=== PATIENT | female | born 1930 | race Caucasian/White ===

== ENCOUNTER → 2016-11-09 | Outpatient (REF) | payer MEDICARE, BC ==
[~2016-11-09] MED LIST: /OMEP10CA; /WARF25TA; CALCIUM 600/VIT D; COUMADIN; OXYB5TAB4; TIMO0.5S; VICO5TAB; ZEBE5TAB; aleve; lisinopril/hctz; tylenol arthritis
[2016-11-09 13:13] LABS: MEAN CORPUSCULAR HEMOGLOBIN 30.7 pg (27.0-33.0); MEAN CORPUSCULAR HGB CONC 33.3 g/dl (32.0-36.5); RED CELL DISTRIBUTION WIDTH 13.2 % (11.5-14.5); WHITE BLOOD COUNT 8.6 K/mm3 (4.0-10.0)
[2016-11-09 14:35] LABS: ALBUMIN 3.9 GM/DL (3.2-5.2); ALBUMIN/GLOBULIN RATIO 1.26 (1.00-1.93); ALKALINE PHOSPHATASE 98 U/L (45-117); ALT/SGPT 23 U/L (12-78); ANION GAP 10 MEQ/L (8-16); AST/SGOT 12 U/L (15-37); BLOOD UREA NITROGEN 12 MG/DL (7-18); CALCIUM LEVEL 9.2 MG/DL (8.8-10.2); CARBON DIOXIDE LEVEL 28 MEQ/L (21-32); CHLORIDE LEVEL 104 MEQ/L (98-107); CHOLESTEROL LEVEL 175 MG/DL (<200); GLOMERULAR FILTRATION RATE > 60.0 (>32); GLUCOSE, FASTING 103 MG/DL (83-110); POTASSIUM SERUM 4.2 MEQ/L (3.5-5.1); SODIUM LEVEL 142 MEQ/L (136-145); TRIGLYCERIDES LEVEL 155 MG/DL (<150)
== END ==
LOC: M SFHCPLAZ 10:39
PROVIDERS: ATTEND Family Medicine
DX: K21.9 Gastro-esophageal reflux disease without esophagitis (principal); F41.8 Other specified anxiety disorders; Z87.440 Personal history of urinary (tract) infections; E11.9 Type 2 diabetes mellitus without complications; E78.4 Other hyperlipidemia
CPT/HCPCS: 36415; 80053; 80061; 83036; 85027; G0463

== ENCOUNTER → 2017-02-19 | Outpatient (REF) | payer MEDICARE, BC | LOC: M LAB REF 17:51 | PROVIDERS: ATTEND Surgery | DX: L57.0 Actinic keratosis (principal) ==

== ENCOUNTER → 2017-11-05 | Outpatient (CLI) | payer MEDICARE, BC | LOC: M RAD 09:32 | DX: N63.10 Unspecified lump in the right breast, unspecified quadrant (principal); Z12.31 Encounter for screening mammogram for malignant neoplasm of breast | CPT/HCPCS: 77066 ==

== ENCOUNTER → 2017-11-07 | Outpatient (REF) | payer MEDICARE, BC | LOC: M LAB REF 18:44 | DX: C50.911 Malignant neoplasm of unspecified site of right female breast (principal) | CPT/HCPCS: 88305 ==

== ENCOUNTER 2017-11-19 07:08 | Inpatient (IN) | payer MEDICARE, BC ==
[2017-11-19 08:33] LABS: BEDSIDE GLUCOSE 218 MG/DL (83-110)
[2017-11-19 08:35] LABS: BASO % 0.5 % (0.0-1.0); EOS # 0.1 10^3/uL (0.0-0.50); EOS % 1.6 % (0.0-3.0); HEMATOCRIT 43.2 % (36.0-47.0); HEMOGLOBIN 14.7 g/dl (12.0-15.5); IMMATURE GRANULOCYTE % 1.1 % (0-3.0); LYMPH # 1.1 10^3/uL (1.5-4.5); LYMPH % 13.2 % (24.0-44.0); MEAN CORPUSCULAR HEMOGLOBIN 30.4 pg (27.0-33.0); MEAN CORPUSCULAR VOLUME 89.4 fl (80.0-96.0); MONO # 0.6 10^3/uL (0.0-0.8); MONO % 7.4 % (0.0-5.0); NEUTROPHILS # 6.2 10^3/uL (1.8-7.7); NEUTROPHILS % 76.2 % (36.0-66.0); PLATELET COUNT, AUTOMATED 168 10^3/uL (150-450); RED BLOOD COUNT 4.83 10^6/uL (4.00-5.40); RED CELL DISTRIBUTION WIDTH 13.2 % (11.5-14.5); WHITE BLOOD COUNT 8.1 10^3/uL (4.0-10.0)
[2017-11-19 08:36] LABS: ANION GAP 7 MEQ/L (8-16); BLOOD UREA NITROGEN 15 MG/DL (7-18); CALCIUM LEVEL 8.1 MG/DL (8.8-10.2); CARBON DIOXIDE LEVEL 26 MEQ/L (21-32); CHLORIDE LEVEL 108 MEQ/L (98-107); CPK CREATINE PHOSPHOKINASE 136 U/L (26-192); CREATININE FOR GFR 0.65 MG/DL (0.55-1.30); GLOMERULAR FILTRATION RATE > 60.0 (>32); GLUCOSE, FASTING 231 MG/DL (70-100); MAGNESIUM LEVEL 1.8 MG/DL (1.8-2.4); POTASSIUM SERUM 3.6 MEQ/L (3.5-5.1); SODIUM LEVEL 141 MEQ/L (136-145); TROPONIN I < 0.02 NG/ML (< 0.10)
[2017-11-19 08:42] LABS: CK-MB VALUE MASS 1.2 NG/ML (<3.6); MB/CK RELATIVE INDEX 0.88 (< OR =4); THYROID STIMULATING HORMONE 0.302 uIU/ML (0.358-3.740)
[2017-11-19 09:01] LABS: POS COUNT POS FLAG
[2017-11-19] MEDS: TETANUS/DIPHTHERIA TOX ADSORB ADULT 0.5ML SYR/VIAL (90714) IM (09:04)
[2017-11-19 10:13] LABS: FREE T4 1.21 NG/DL (0.76-1.46)
[2017-11-19 11:25] LABS: CK-MB VALUE MASS 1.8 NG/ML (<3.6); CPK CREATINE PHOSPHOKINASE 200 U/L (26-192); TROPONIN I < 0.02 NG/ML (< 0.10)
[2017-11-19] MEDS: ACETAMINOPHEN TAB 650MG DOSE (2X325MG) PO (12:08)
[2017-11-19] MEDS ORDERED: GLUCOSE 4 GM CHEW TABLET PO (13:45)
[2017-11-19] MEDS ORDERED: GLUCAGON FOR INJ 1 MG VIAL (J1610) SC (13:45)
[2017-11-19] MEDS ORDERED: DEXTROSE 50% 50 ML SYRINGE IV (13:45)
[2017-11-19] MEDS: HumaLOG INSULIN (NovoLOG) PER UNIT SC ×2 (17:30→20:17)
[2017-11-19 20:17] LABS: BEDSIDE GLUCOSE 186 MG/DL (83-110)
[2017-11-19] MEDS: NYSTATIN 100,000 UNITS/GM TOPICAL PWD 15 GM TOP (21:00)
[2017-11-20 06:35] LABS: HEMATOCRIT 42.7 % (36.0-47.0); HEMOGLOBIN 14.7 g/dl (12.0-15.5); MEAN CORPUSCULAR HEMOGLOBIN 30.6 pg (27.0-33.0); MEAN CORPUSCULAR HGB CONC 34.4 g/dl (32.0-36.5); PLATELET COUNT, AUTOMATED 239 10^3/uL (150-450); RED CELL DISTRIBUTION WIDTH 13.3 % (11.5-14.5); WHITE BLOOD COUNT 8.7 10^3/uL (4.0-10.0)
[2017-11-20 06:56] LABS: ALBUMIN 3.2 GM/DL (3.2-5.2); ALBUMIN/GLOBULIN RATIO 1.03 (1.00-1.93); ALKALINE PHOSPHATASE 79 U/L (45-117); ALT/SGPT 20 U/L (12-78); ANION GAP 6 MEQ/L (8-16); AST/SGOT 14 U/L (7-37); BILIRUBIN,TOTAL 1.3 MG/DL (0.2-1.0); BLOOD UREA NITROGEN 13 MG/DL (7-18); CALCIUM LEVEL 8.4 MG/DL (8.8-10.2); CARBON DIOXIDE LEVEL 27 MEQ/L (21-32); CHLORIDE LEVEL 107 MEQ/L (98-107); CREATININE FOR GFR 0.63 MG/DL (0.55-1.30); GLOMERULAR FILTRATION RATE > 60.0 (>32); GLUCOSE, FASTING 186 MG/DL (70-100); POTASSIUM SERUM 3.7 MEQ/L (3.5-5.1); SODIUM LEVEL 140 MEQ/L (136-145); TOTAL PROTEIN 6.3 GM/DL (6.4-8.2)
[2017-11-20 09:27] LABS: BEDSIDE GLUCOSE 253 MG/DL (83-110)
[2017-11-20] MEDS: HumaLOG INSULIN (NovoLOG) PER UNIT SC ×4 (09:45→20:35)
[2017-11-20 12:02] LABS: BEDSIDE GLUCOSE 137 MG/DL (83-110)
[2017-11-20] MEDS: NYSTATIN 100,000 UNITS/GM TOPICAL PWD 15 GM TOP ×2 (12:07→20:37)
[2017-11-20] MEDS: ACETAMINOPHEN TAB 650MG DOSE (2X325MG) PO (12:07)
[2017-11-20 16:42] LABS: ESTIMATED AVERAGE GLUCOSE 214 MG/DL (60-110); HEMOGLOBIN A1c 9.1 %
[2017-11-20 18:00] LABS: BEDSIDE GLUCOSE 221 MG/DL (83-110)
[2017-11-20 20:17] LABS: BEDSIDE GLUCOSE 228 MG/DL (83-110)
[2017-11-21 06:32] LABS: HEMOGLOBIN 15.4 g/dl (12.0-15.5); MEAN CORPUSCULAR HEMOGLOBIN 30.1 pg (27.0-33.0); MEAN CORPUSCULAR HGB CONC 33.5 g/dl (32.0-36.5); MEAN CORPUSCULAR VOLUME 89.8 fl (80.0-96.0); PLATELET COUNT, AUTOMATED 257 10^3/uL (150-450); RED BLOOD COUNT 5.12 10^6/uL (4.00-5.40); RED CELL DISTRIBUTION WIDTH 13.2 % (11.5-14.5); WHITE BLOOD COUNT 9.3 10^3/uL (4.0-10.0)
[2017-11-21 06:56] LABS: ALBUMIN 3.3 GM/DL (3.2-5.2); ALBUMIN/GLOBULIN RATIO 0.94 (1.00-1.93); ALKALINE PHOSPHATASE 88 U/L (45-117); ALT/SGPT 21 U/L (12-78); ANION GAP 8 MEQ/L (8-16); AST/SGOT 11 U/L (7-37); BLOOD UREA NITROGEN 16 MG/DL (7-18); CALCIUM LEVEL 8.9 MG/DL (8.8-10.2); CARBON DIOXIDE LEVEL 25 MEQ/L (21-32); CHLORIDE LEVEL 108 MEQ/L (98-107); CREATININE FOR GFR 0.73 MG/DL (0.55-1.30); GLOMERULAR FILTRATION RATE > 60.0 (>32); GLUCOSE, FASTING 205 MG/DL (70-100); SODIUM LEVEL 141 MEQ/L (136-145); TOTAL PROTEIN 6.8 GM/DL (6.4-8.2)
[2017-11-21] MEDS: NYSTATIN 100,000 UNITS/GM TOPICAL PWD 15 GM TOP ×2 (08:04→20:52)
[2017-11-21] MEDS: HumaLOG INSULIN (NovoLOG) PER UNIT SC ×4 (08:05→20:51)
[2017-11-21 11:38] LABS: BEDSIDE GLUCOSE 202 MG/DL (83-110)
[2017-11-21 16:50] LABS: BEDSIDE GLUCOSE 247 MG/DL (83-110)
[2017-11-21 20:52] LABS: BEDSIDE GLUCOSE 165 MG/DL (83-110)
[2017-11-22 06:11] LABS: HEMOGLOBIN 15.4 g/dl (12.0-15.5); MEAN CORPUSCULAR HEMOGLOBIN 29.8 pg (27.0-33.0); MEAN CORPUSCULAR HGB CONC 33.5 g/dl (32.0-36.5); PLATELET COUNT, AUTOMATED 271 10^3/uL (150-450); RED BLOOD COUNT 5.17 10^6/uL (4.00-5.40); RED CELL DISTRIBUTION WIDTH 13.4 % (11.5-14.5); WHITE BLOOD COUNT 9.7 10^3/uL (4.0-10.0)
[2017-11-22 06:30] LABS: ALBUMIN 3.3 GM/DL (3.2-5.2); ALBUMIN/GLOBULIN RATIO 0.94 (1.00-1.93); ALKALINE PHOSPHATASE 88 U/L (45-117); ALT/SGPT 23 U/L (12-78); ANION GAP 8 MEQ/L (8-16); AST/SGOT 14 U/L (7-37); BLOOD UREA NITROGEN 16 MG/DL (7-18); CALCIUM LEVEL 8.9 MG/DL (8.8-10.2); CARBON DIOXIDE LEVEL 27 MEQ/L (21-32); CHLORIDE LEVEL 106 MEQ/L (98-107); CREATININE FOR GFR 0.69 MG/DL (0.55-1.30); GLOMERULAR FILTRATION RATE > 60.0 (>32); GLUCOSE, FASTING 205 MG/DL (70-100); POTASSIUM SERUM 4.1 MEQ/L (3.5-5.1); SODIUM LEVEL 141 MEQ/L (136-145); TOTAL PROTEIN 6.8 GM/DL (6.4-8.2)
[2017-11-22] MEDS: HumaLOG INSULIN (NovoLOG) PER UNIT SC ×2 (07:44→12:32)
[2017-11-22] MEDS: NYSTATIN 100,000 UNITS/GM TOPICAL PWD 15 GM TOP (07:44)
[2017-11-22 12:09] LABS: BEDSIDE GLUCOSE 236 MG/DL (83-110)
== END 2017-11-22 13:45 | DRG 312 ==
LOC: M ED 07:08 → M ED INP 13:35 → M PCU 14:25
DX: R55 Syncope and collapse (principal); S02.2XXA Fracture of nasal bones, initial encounter for closed fracture; C50.911 Malignant neoplasm of unspecified site of right female breast; E11.9 Type 2 diabetes mellitus without complications; F13.90 Sedative, hypnotic, or anxiolytic use, unspecified, uncomplicated; Z88.0 Allergy status to penicillin; K21.9 Gastro-esophageal reflux disease without esophagitis; I10 Essential (primary) hypertension; E55.9 Vitamin D deficiency, unspecified; Z96.652 Presence of left artificial knee joint; E66.9 Obesity, unspecified; R29.6 Repeated falls

== ENCOUNTER → 2017-11-29 | Outpatient (REF) ==
[2017-11-29 09:48] LABS: HEMATOCRIT 44.8 % (36.0-47.0); HEMOGLOBIN 15.1 g/dl (12.0-15.5); MEAN CORPUSCULAR HEMOGLOBIN 30.3 pg (27.0-33.0); MEAN CORPUSCULAR HGB CONC 33.7 g/dl (32.0-36.5); PLATELET COUNT, AUTOMATED 237 10^3/uL (150-450); RED BLOOD COUNT 4.98 10^6/uL (4.00-5.40); RED CELL DISTRIBUTION WIDTH 13.2 % (11.5-14.5); WHITE BLOOD COUNT 8.1 10^3/uL (4.0-10.0)
[2017-11-29 10:05] LABS: ANION GAP 10 MEQ/L (8-16); BLOOD UREA NITROGEN 16 MG/DL (7-18); CALCIUM LEVEL 8.9 MG/DL (8.8-10.2); CARBON DIOXIDE LEVEL 28 MEQ/L (21-32); CHLORIDE LEVEL 103 MEQ/L (98-107); CREATININE FOR GFR 0.75 MG/DL (0.55-1.30); GLOMERULAR FILTRATION RATE > 60.0 (>32); GLUCOSE, FASTING 289 MG/DL (70-100); POTASSIUM SERUM 4.1 MEQ/L (3.5-5.1); SODIUM LEVEL 141 MEQ/L (136-145)
== END ==
DX: S02.2XXD Fracture of nasal bones, subsequent encounter for fracture with routine healing (principal)

== ENCOUNTER → 2018-02-14 | Outpatient (REF) | payer MEDICARE, BC ==
[2018-02-14 16:16] LABS: APPEARANCE, URINE HAZY (CLEAR); BACTERIA, URINE AUTO 1+ (NEGATIVE); BILIRUBIN, URINE AUTO NEGATIVE (NEGATIVE); BLOOD, URINE BLOOD 1+ (NEGATIVE); COLOR, URINE YELLOW (YELLOW); GLUCOSE, URINE (UA) AUTO 3+ mg/dL (NEGATIVE); KETONE, URINE AUTO NEGATIVE (NEGATIVE); LEUKOCYTE ESTERASE, URINE AUTO TRACE (NEGATIVE); NITRITE, URINE AUTO POSITIVE (NEGATIVE); PROTEIN, URINE AUTO NEGATIVE (NEGATIVE); RBC, URINE AUTO 2 /HPF (0-3); SPECIFIC GRAVITY URINE AUTO 1.028 (1.002-1.035); SQUAMOUS EPITHELIAL CELL UR AU 0 /HPF (0-6); UROBILINOGEN, URINE AUTO 0.2 mg/dL (0.0-2.0); WBC, URINE AUTO 24 /HPF (0-3)
== END ==
LOC: M SFHCPLAZ 15:45
DX: R35.0 Frequency of micturition (principal); N30.01 Acute cystitis with hematuria; Z23 Encounter for immunization
CPT/HCPCS: 81001

== ENCOUNTER → 2018-03-25 | Outpatient (REF) | payer MEDICARE, BC ==
[2018-03-25 13:33] LABS: HEMATOCRIT 48.6 % (36.0-47.0); MEAN CORPUSCULAR HEMOGLOBIN 29.5 pg (27.0-33.0); MEAN CORPUSCULAR HGB CONC 32.9 g/dl (32.0-36.5); MEAN CORPUSCULAR VOLUME 89.7 fl (80.0-96.0); PLATELET COUNT, AUTOMATED 265 10^3/uL (150-450); RED BLOOD COUNT 5.42 10^6/uL (4.00-5.40); RED CELL DISTRIBUTION WIDTH 13.5 % (11.5-14.5); WHITE BLOOD COUNT 10.1 10^3/uL (4.0-10.0)
[2018-03-25 14:06] LABS: ALBUMIN 3.8 GM/DL (3.2-5.2); ALBUMIN/GLOBULIN RATIO 1.15 (1.00-1.93); ALKALINE PHOSPHATASE 98 U/L (45-117); ALT/SGPT 26 U/L (12-78); ANION GAP 9 MEQ/L (8-16); AST/SGOT 13 U/L (7-37); BILIRUBIN,TOTAL 0.7 MG/DL (0.2-1.0); BLOOD UREA NITROGEN 16 MG/DL (7-18); CALCIUM LEVEL 9.4 MG/DL (8.8-10.2); CARBON DIOXIDE LEVEL 30 MEQ/L (21-32); CHLORIDE LEVEL 100 MEQ/L (98-107); CHOLESTEROL LEVEL 173 MG/DL (<200); CHOLESTEROL RISK RATIO 3.604 (<5); CREATININE FOR GFR 0.68 MG/DL (0.55-1.30); FREE T4 1.32 NG/DL (0.76-1.46); GLOMERULAR FILTRATION RATE > 60.0 (>32); GLUCOSE, FASTING 215 MG/DL (70-100); HDL CHOLESTEROL 48 MG/DL (>40); LDL CHOLESTEROL 98 MG/DL (<100); NON-HDL-C 125 MG/DL; POTASSIUM SERUM 4.6 MEQ/L (3.5-5.1); SODIUM LEVEL 139 MEQ/L (136-145); THYROID STIMULATING HORMONE 0.361 uIU/ML (0.358-3.740); TOTAL PROTEIN 7.1 GM/DL (6.4-8.2); TRIGLYCERIDES LEVEL 137 MG/DL (<150)
[2018-03-25 14:25] LABS: ESTIMATED AVERAGE GLUCOSE 212 MG/DL (60-110)
== END ==
DX: E11.9 Type 2 diabetes mellitus without complications (principal); I10 Essential (primary) hypertension; E78.49 Other hyperlipidemia
CPT/HCPCS: 84443

== ENCOUNTER → 2018-05-16 | Outpatient (CLI) | payer MEDICARE ==
[~2018-05-16] MED LIST changes: +APAP325T4 PO; +LETR2.5T2 PO; +METF500T4 PO; +NYST1POW9 TOP; +[UNRECOGNIZED DRUG - CODE] PO
--- NOTE | 2018-05-16 16:50 | REP ---
Digital diagnostic unilateral right breast mammography with CAD and focused right breast sonography: History: Known right breast malignancy for follow-up. The patient on neoadjuvant chemotherapy. Comparison mammography and sonography November 05, 2017. Mammographic findings: The known malignant right breast mass located superiorly and slightly medially has decreased significantly in size in the interval since the November 05, 2017 prior mammogram. Previous craniocaudal dimension was 6.7 cm. Current craniocaudal dimension is 3.7 cm. Previous anteroposterior dimension is 6.3 cm, current anteroposterior dimension is 4.6 cm. The previous medial to lateral dimension was 5.9 cm and current medial to lateral dimension is 3.3 cm. No new breast mass lesion is observed. No other finding. Focused right breast sonography findings: The right breast is rescanned at approximate 1 o'clock. The mass previously measured by ultrasound 5.5 x 4.8 x 5.4 cm. On today's sonography, these dimensions have decreased to 3.2 x 2.1 x 3.5 cm. Impression: BIRADS category 6 known right breast malignancy. Mammography and sonography today shows treatment response with shrinkage of the malignant mass in the right breast. No new mammographic abnormality. BI-RADS/ACR category 6 mammogram. Known biopsy-proven malignancy - appropriate action should be taken. Category reserved for lesions identified on imaging study with biopsy proof of malignancy prior to definitive therapy. This mammogram was interpreted with the aid of an FDA-approved computer-aided detection system. The patient states she had a clinical breast exam in the April 2018. The patient letter being requested is m#[id number]. Electronically Signed by Danilo Talley MD 05/16/2018 07:25 P
== END ==
LOC: M RAD 10:54
PROVIDERS: ATTEND Nurse Practitioner Family
DX: C50.911 Malignant neoplasm of unspecified site of right female breast (principal)

== ENCOUNTER → 2018-07-29 | Outpatient (REF) | payer MEDICARE ==
[~2018-07-29] MED LIST changes: +TRUL10IN SC
[2018-07-29 10:29] LABS: BLOOD UREA NITROGEN 12 MG/DL (7-18); CALCIUM LEVEL 8.9 MG/DL (8.8-10.2); CARBON DIOXIDE LEVEL 28 MEQ/L (21-32); CHLORIDE LEVEL 102 MEQ/L (98-107); CREATININE FOR GFR 0.62 MG/DL (0.55-1.30); GLOMERULAR FILTRATION RATE > 60.0 (>32); GLUCOSE, FASTING 147 MG/DL (70-100); HEMOGLOBIN A1c 7.5 %; SODIUM LEVEL 138 MEQ/L (136-145)
== END ==
PROVIDERS: ATTEND Physician Assistant
DX: E11.9 Type 2 diabetes mellitus without complications (principal)

== ENCOUNTER → 2018-09-12 | Outpatient (REF) | payer MEDICARE, BC ==
[~2018-09-12] MED LIST changes: -/WARF25TA; +COUM1TAB18; +MILKSUS9 PO; -[UNRECOGNIZED DRUG - CODE] PO
[2018-09-12 15:48] LABS: BASO # 0.1 10^3/uL (0.0-0.2); BASO % 0.7 % (0.0-1.0); EOS # 0.3 10^3/uL (0.0-0.50); HEMOGLOBIN 15.9 g/dl (12.0-15.5); LYMPH # 2.1 10^3/uL (1.5-4.5); LYMPH % 15.5 % (24.0-44.0); MEAN CORPUSCULAR HEMOGLOBIN 29.8 pg (27.0-33.0); MEAN CORPUSCULAR HGB CONC 33.1 g/dl (32.0-36.5); MEAN CORPUSCULAR VOLUME 89.9 fl (80.0-96.0); MONO % 7.1 % (0.0-5.0); NEUTROPHILS # 9.8 10^3/uL (1.8-7.7); NEUTROPHILS % 73.5 % (36.0-66.0); PLATELET COUNT, AUTOMATED 342 10^3/uL (150-450); RED BLOOD COUNT 5.34 10^6/uL (4.00-5.40); WHITE BLOOD COUNT 13.4 10^3/uL (4.0-10.0)
[2018-09-12 16:22] LABS: ALBUMIN 3.5 GM/DL (3.2-5.2); ALT/SGPT 31 U/L (12-78); BILIRUBIN,TOTAL 0.7 MG/DL (0.2-1.0); BLOOD UREA NITROGEN 13 MG/DL (7-18); CALCIUM LEVEL 9.3 MG/DL (8.8-10.2); CARBON DIOXIDE LEVEL 28 MEQ/L (21-32); CHLORIDE LEVEL 101 MEQ/L (98-107); CREATININE FOR GFR 0.79 MG/DL (0.55-1.30); GLOMERULAR FILTRATION RATE > 60.0 (>32); GLUCOSE, FASTING 128 MG/DL (70-100); POTASSIUM SERUM 3.7 MEQ/L (3.5-5.1); SODIUM LEVEL 137 MEQ/L (136-145); TOTAL PROTEIN 7.2 GM/DL (6.4-8.2)
== END ==
LOC: M SFHCPLAZ 14:22
PROVIDERS: ATTEND Family Medicine
DX: R19.7 Diarrhea, unspecified (principal)

== ENCOUNTER 2018-10-10 13:17 | Inpatient (IN) | payer MEDICARE ==
[~2018-10-10] VITALS: Ht 165.1 cm; Wt 85.0 kg
[2018-10-10] VITALS (9 sets, daily range): BP systolic 99–134; BP diastolic 55–84
[~2018-10-10 13:17] MED LIST changes: +MILKSUS3 PO; +ONDA4TAB6 PO
[2018-10-10] MEDS ORDERED: LETR2.5T2 PO (13:29)
[2018-10-10] MEDS: MORPHINE 2 MG/ML 1ML SYRINGE (J2270) IV PRN ×2 (13:38→13:49)
[2018-10-10 13:46] LABS: BASO # 0.1 10^3/uL (0.0-0.2); BASO % 0.4 % (0.0-1.0); EOS # 0.2 10^3/uL (0.0-0.50); EOS % 0.7 % (0.0-3.0); HEMATOCRIT 47.6 % (36.0-47.0); HEMOGLOBIN 15.9 g/dl (12.0-15.5); LYMPH # 2.8 10^3/uL (1.5-4.5); LYMPH % 12.3 % (24.0-44.0); MEAN CORPUSCULAR HEMOGLOBIN 30.3 pg (27.0-33.0); MEAN CORPUSCULAR HGB CONC 33.4 g/dl (32.0-36.5); MEAN CORPUSCULAR VOLUME 90.7 fl (80.0-96.0); MONO # 1.8 10^3/uL (0.0-0.8); MONO % 7.9 % (0.0-5.0); NEUTROPHILS # 17.7 10^3/uL (1.8-7.7); NEUTROPHILS % 77.3 % (36.0-66.0); PLATELET COUNT, AUTOMATED 320 10^3/uL (150-450); RED BLOOD COUNT 5.25 10^6/uL (4.00-5.40); WHITE BLOOD COUNT 22.9 10^3/uL (4.0-10.0)
[2018-10-10 13:56] LABS: INR 1.24; PROTHROMBIN TIME 15.8 SECONDS (12.1-14.4)
[2018-10-10 13:57] LABS: PARTIAL THROMBOPLASTIN TIME 28.9 SECONDS (25.4-37.6)
--- NOTE | 2018-10-10 14:02 | REP ---
Clinical: Right-sided chest pain. Technique: Portable upright view of the chest. Comparison: 11/19/2017 Findings: Bibasilar atelectasis suggested. Pulmonary nodules in the right lower lung zone cannot be excluded. No definite effusion. No pneumothorax. Mediastinum and cardiac silhouette are stable. Skeletal structures are intact. Impression: Findings suggest bibasilar atelectasis (left greater than right) as well as possible right lower lobe nodules. Electronically Signed by Stas Miller MD 10/10/2018 01:54 P
[2018-10-10] MEDS ORDERED: HYDROMORPHONE HCL 0.5 MG/ 0.5 ML SYRINGE (J1170 PER 1) IV ONE (14:15)
[2018-10-10 14:19] LABS: ALBUMIN 3.1 GM/DL (3.2-5.2); BILIRUBIN,DIRECT 0.6 MG/DL (0.0-0.2); BILIRUBIN,TOTAL 1.6 MG/DL (0.2-1.0); CALCIUM LEVEL 8.9 MG/DL (8.8-10.2); CREATININE FOR GFR 0.95 MG/DL (0.55-1.30); GLOMERULAR FILTRATION RATE 59.5 (>32); MB/CK RELATIVE INDEX 1.36 (< OR =4); POTASSIUM SERUM 3.5 MEQ/L (3.5-5.1); TOTAL PROTEIN 7.2 GM/DL (6.4-8.2); TROPONIN I 0.02 NG/ML (< 0.10)
[2018-10-10] MEDS ORDERED: ISOVUE-370 76% 100ML VIAL (Q9967) As Ordered ONE (15:53)
[2018-10-10] MEDS ORDERED: HYDROMORPHONE HCL 0.5 MG/ 0.5 ML SYRINGE (J1170 PER 1) IV PRN (16:00)
[2018-10-10] MEDS ORDERED: NS 2,400 ML in APPROPRIATE DILUENT 1 EA IV ONE (16:00)
--- NOTE | 2018-10-10 16:25 | REP ---
Clinical: Acute chest pain. Technique: Axial contrast enhanced images from the thoracic inlet to the upper abdomen using 100 ml Isovue 370 intravenous contrast material with coronal and sagittal re-formations. Findings: Extensive bilateral pulmonary emboli are appreciated extending from the right main pulmonary artery into the right upper lobe, middle lobe and lower lobe arteries with associated right lower lobe atelectasis as well as pulmonary emboli in the left main pulmonary artery extending into the lingula, left upper lobe and left lower lobe arteries with mild atelectasis. Further evaluation of the lung christopher demonstrates a 1.5 cm nodule in the right upper lobe (image 32) and smaller adjacent satellite nodules. No significant effusion. No pneumothorax. Mediastinal adenopathy is suggested although poorly evaluated. Thoracic aorta demonstrates atherosclerotic changes without aneurysm or dissection. Atherosclerotic changes to the coronary arteries are also identified without cardiomegaly or pericardial effusion. Heterogeneous enhancing right thyroid goiter measures greater than 6.8 cm maximal diameter with mass effect on the trachea and adjacent vascular structures in the thoracic inlet. The osseous structures demonstrate age-related osteopenia and degenerative changes. Impression: 1. Extensive bilateral pulmonary emboli originating in the right and left main pulmonary arteries with mild bibasilar atelectasis. 2. Pulmonary vascular congestion and poor inspiratory effort limits evaluation. 3. 1.5 cm nodular mass in the right upper lobe with small satellite lesions. 4. Large heterogeneous right thyroid goiter greater than 6.8 cm maximal diameter with mass effect on the trachea and vascular structures of the thoracic inlet. Electronically Signed by Stas Miller MD 10/10/2018 04:17 P
--- NOTE | 2018-10-10 16:30 | REP ---
Clinical: Right flank pain. Technique: Axial contrast enhanced images from the lung bases to the pubic symphysis with coronal and sagittal re-formations using 100 ml Isovue 370 intravenous contrast material. Findings: Lung bases demonstrate extensive lower lobe pulmonary emboli and mild bibasilar atelectasis. Fatty infiltration to the liver suggested without focal hepatic lesion. Spleen, atrophic pancreas, gallbladder, bilateral adrenal glands and kidneys are essentially normal for age. Age-related cortical atrophic change to the kidneys with small cyst are suggested although incompletely evaluated due to technique and motion artifact. There is no evidence for bowel obstruction or obvious acute inflammatory process. Extensive sigmoid diverticulosis noted without acute diverticulitis. 1 cm fat containing periumbilical hernia is identified. Pelvis demonstrates small diverticulum along the posterior aspect of the bladder with bladder gas suggesting prior catheterization. Uterus / adnexa are normal for age. No ascites. No free air. No adenopathy. Atherosclerotic changes of the aorta and vasculature noted without aneurysm or dissection. Musculoskeletal structures demonstrate degenerative changes without focal osseous abnormality. Impression: 1. Lung bases demonstrate pulmonary emboli and bibasilar atelectasis reported on patient's chest CT. 2. Age-related changes to the kidneys with suspected small cysts incompletely evaluated due to respiratory motion artifact. 3. Extensive sigmoid diverticulosis without acute diverticulitis or obvious acute enteric process. 4. 1 cm fat containing periumbilical hernia. 5. Possible small posterior bladder diverticulum. 6. No acute abdominopelvic pathology appreciated. Specifically, no ascites, focal inflammatory changes or adenopathy noted. Electronically Signed by Stas Miller MD 10/10/2018 04:21 P
[2018-10-10] MEDS ORDERED: METF10004 PO (16:43)
[2018-10-10] MEDS ORDERED: MOM30SS PO (16:43)
[2018-10-10] MEDS ORDERED: HEPARIN DRIP 25,000 UNITS in APPROPRIATE DILUENT 1 EA IV SCH ×3 (16:59→17:45)
[2018-10-10] MEDS ORDERED: HEPARIN SOD (PORCINE) 5000 UNITS/ML VIAL IV ONE (17:00)
[2018-10-10] MEDS ORDERED: NS 1,000 ML IV SCH (17:15)
[2018-10-10] MEDS ORDERED: MOM 30ML SUSPENSION UDC PO PRN (17:15)
[2018-10-10] MEDS ORDERED: DEXTROSE 50% 50 ML SYRINGE IV PRN (17:15)
[2018-10-10] MEDS ORDERED: ONDANSETRON 4 MG ORAL DISINTEGRATING TAB (Q0162 PER 1MG) PO PRN (17:15)
[2018-10-10] MEDS ORDERED: GLUCAGON FOR INJ 1 MG VIAL (J1610) SC PRN (17:15)
[2018-10-10] MEDS ORDERED: GLUCOSE 4 GM CHEW TABLET PO PRN (17:15)
[2018-10-10] MEDS ORDERED: HEPARIN SOD (PORCINE) 5000 UNITS/ML VIAL IV PRN (17:30)
--- NOTE | 2018-10-10 17:31 | HPEPDOC ---
[facility] Medical History & Physical Date of Admission October 10, 2018 Date of Service: October 10, 2018 History and Physical PCP: Teddy Avilez CHIEF COMPLAINT: Chest pain HISTORY OF PRESENT ILLNESS: Patient is an 87-year-old female who was out with family eating lunch when shortly thereafter she developed the sudden onset of excruciating right-sided chest pain. In association after eating a cheeseburger. She tells me that is worse with deep inspiration she is nervous. The pain like this before she does have some associated shortness of breath. The patient has received IV morphine in the emergency room with minimal relief. The patient does have some baseline dementia and as such her family who is bedside unable to assist with much of the history. Otherwise patient denies weight loss, hair loss , headache, visual changes, cough, nausea, vomiting, diarrhea, abdominal pain, muscle aches, worsening arthritis, change in mood PAST MEDICAL HISTORY: 1. Diastolic congestive heart failure. 2. Hypertension. 3. Type 2 diabetes 4. Breast cancer on palliative treatments only 5. Gastroesophageal reflux disease. 6. Dementia 7. Chronic constipation HOME MEDICATIONS: Please see below. ALLERGIES: Please see below PAST SURGICAL HISTORY: 1. Left total knee replacement. 2. Glaucoma surgery bilaterally. 3. Left foot bunion and hammertoe corrective surgery 4. Colonoscopy. SOCIAL HISTORY: Lives : [facility], Employment: Retired, Tobacco use: Denies. ETOH: Denies, Illicit drug use: Denies, Tattoos done unprofessionally: Denies, CODE STATUS: DNR/DNI patient's son who is currently tablet healthcare proxy her daughter and another center bedside FAMILY HISTORY:Reviewed and noncontributory REVIEW OF SYSTEMS: 10 systems reviewed and negative other than HPI PHYSICAL EXAMINATION: VITAL SIGNS: Temperature afebrile, pulse 88, respiratory rate 18, blood pressure 126/64, pulse oximetry 94% % on room air. GENERAL: [Pleasant elderly female writhing in her stretcher awake alert and answers questions appropriately appears to be in obvious discomfort HEENT: Moist mucous membranes no elevation and CVP CARDIOVASCULAR: S1 S2 regular no additional heart sounds appreciated. RESPIRATORY: Clear to auscultation bilaterally. ABDOMINAL: Bowel sounds present abdomen soft and nontender EXTREMITIES: No clubbing cyanosis or edema NEUROLOGICAL: Spontaneously moves all 4 extremities cranial 2 through 12 grossly intact no gross focal deficits appreciated PSYCHOLOGICAL: Appropriate LABORATORY DATA: See below. MICROBIOLOGY: Please see below. IMAGING: CT angiography of the chest:1. Extensive bilateral pulmonary emboli originating in the right and left main pulmonary arteries with mild bibasilar atelectasis. 2. Pulmonary vascular congestion and poor inspiratory effort limits evaluation. 3. 1.5 cm nodular mass in the right upper lobe with small satellite lesions. 4. Large heterogeneous right thyroid goiter greater than 6.8 cm maximal diameter with mass effect on the trachea and vascular structures of the thoracic inlet. CT abdomen and pelvis:1. Lung bases demonstrate pulmonary emboli and bibasilar atelectasis reported on patient's chest CT. 2. Age-related changes to the kidneys with suspected small cysts incompletely evaluated due to respiratory motion artifact. 3. Extensive sigmoid diverticulosis without acute diverticulitis or obvious acute enteric process. 4. 1 cm fat containing periumbilical hernia. 5. Possible small posterior bladder diverticulum. 6. No acute abdominopelvic pathology appreciated. Specifically, no ascites, focal inflammatory changes or adenopathy noted. ASSESSMENT & PLAN: This is a 87-year-old female with extensive bilateral pulmonary emboli. PROBLEMS: 1. Extensive bilateral pulmonary emboli: She is likely hypercoagulable secondary to her malignancy. I will check trend troponin as well as BNP and spoke with Dr. Welsh and Dr. Garcia we will plan for a stat echocardiogram to evaluate her right ventricular function should to be significant strain would consider for TPA the time being we will initiate IV heparin therapy. Continue with oxygen supplementation and pain control. This patient has been signed out to [facility] will continue following the patient. She is currently mildly hypoxic from her baseline we'll continue to monitor closely her prognosis is guarded 2.Breast cancer: Followed by emily Mackenzie in oncology patient elected for no further chemotherapy or aggressive treatments and site of her dementia. She is on letrozole as palliative therapy. 3. Diabetes: We'll provide her with sliding scale consistent carb 2 g sodium diet hypoglycemic protocol 4. Chronic constipation: Continue with her home bowel regimen DVT PROPHYLAXIS:Heparin drip DISPOSITION: Admitted to [facility] inpatient status. Prognosis is guarded Vital Signs Vital Signs Date Time Temp Pulse Resp B/P (MAP) Pulse Ox O2 Delivery O2 Flow Rate FiO2 10/10/18 15:16 88 18 94 Nasal Cannula 3.0 10/10/18 15:15 126/64 (84) Laboratory Data Labs 24H Laboratory Tests 2 10/10/18 12:33: Lactic Acid Level 3.7*H 10/10/18 13:34: Immature Granulocyte % (Auto) 1.4, White Blood Count 22.9H, Red Blood Count 5.25, Hemoglobin 15.9H, Hematocrit 47.6H, Mean Corpuscular Volume 90.7, Mean Corpuscular Hemoglobin 30.3, Mean Corpuscular Hemoglobin Concent 33.4, Red Cell Distribution Width 13.5, Platelet Count 320, Neutrophils (%) (Auto) 77.3H, Lymphocytes (%) (Auto) 12.3L, Monocytes (%) (Auto) 7.9H, Eosinophils (%) (Auto) 0.7, Basophils (%) (Auto) 0.4, Neutrophils # (Auto) 17.7H, Lymphocytes # (Auto) 2.8, Monocytes # (Auto) 1.8H, Eosinophils # (Auto) 0.2, Basophils # (Auto) 0.1, Nucleated Red Blood Cells % (auto) 0.0, Prothrombin Time 15.8H, Prothromb Time International Ratio 1.24, Activated Partial Thromboplast Time 28.9, Anion Gap 12, Glomerular Filtration Rate 59.5, Calcium Level 8.9, Aspartate Amino Transf (AST/SGOT) 31, Alanine Aminotransferase (ALT/SGPT) 45, Alkaline Phosphatase 121H, Total Bilirubin 1.6H, Direct Bilirubin 0.6H, Total Creatine Kinase 125, Creatine Kinase MB 2.0, Creatine Kinase MB Relative Index 1.36, Troponin I 0.02, Total Protein 7.2, Albumin 3.1L, Albumin/Globulin Ratio 0.76L, Amylase Level 21L, Lipase 177 10/10/18 14:47: Urine Color SHLOMO, Urine Appearance CLOUDYH, Urine pH 5.0, Urine Specific [place] 1.018, Urine Protein NEGATIVE, Urine Glucose (UA) 3+H, Urine Ketones TRACEH, Urine Blood 1+H, Urine Nitrite NEGATIVE, Urine Bilirubin NEGATIVE, Urine Urobilinogen 4.0H, Urine Leukocyte Esterase 2+H, Urine WBC (Auto) 2, Urine RBC (Auto) 1, Urine Hyaline Casts (Auto) 0, Urine Bacteria (Auto) 3+H, Urine Squamous Epithelial Cells 0, Urine Mucus (Auto) SMALL, Urine Sperm (Auto) CBC/BMP Laboratory Tests 10/10/18 13:34 Red Blood Count 5.25, Mean Corpuscular Volume 90.7, Mean Corpuscular Hemoglobin 30.3, Mean Corpuscular Hemoglobin Concent 33.4, Red Cell Distribution Width 13.5, Neutrophils (%) (Auto) 77.3 H, Lymphocytes (%) (Auto) 12.3 L, Monocytes (%) (Auto) 7.9 H, Eosinophils (%) (Auto) 0.7, Basophils (%) (Auto) 0.4, Neutrophils # (Auto) 17.7 H, Lymphocytes # (Auto) 2.8, Monocytes # (Auto) 1.8 H, Eosinophils # (Auto) 0.2, Basophils # (Auto) 0.1 Microbiology Microbiology 10/10/18 Blood Culture, Received Pending 10/10/18 Blood Culture, Received Pending 10/10/18 Urine Culture, Received Pending Home Medications Scheduled Dulaglutide (Trulicity) 0.75 Mg/0.5 Ml Inj, 0.75 MG SC Q7D SUNDAYS AT 1800 Letrozole (Letrozole) 2.5 Mg Tab, 2.5 MG PO QPM AT 1700 Metformin HCl (Metformin HCl) 1,000 Mg Tablet, 1,000 MG PO BID Nystatin (Nystatin Powder) 15 Gm Powder, 1 APLCT TOP BID Scheduled PRN Acetaminophen (Acetaminophen) 325 Mg Tab, 650 MG PO Q4H PRN for PAIN Milk Of Magnesia (Milk of Magnesia) 2,400 Mg/10 Ml Oral.susp, 10 ML PO DAILY PRN for CONSTIPATION Ondansetron (Ondansetron Odt) 4 Mg Tab.rapdis, 4 MG PO Q6H PRN for NAUSEA Allergies Coded Allergies: Penicillins (Verified Allergy, Intermediate, Rash, 09/01/18) A-FIB/CHADSVASC A-FIB History Current/History of A-Fib/PAF?: No JAX HILARIO MD October 10, 2018 17:31
--- NOTE | 2018-10-10 18:09 | REP ---
Clinical: Acute pulmonary embolus . Technique: Natarajan scale and color Doppler evaluation using linear high frequency transducer. Findings: Ultrasound examination of the right and left lower extremity deep venous structures from the common femoral vein to the popliteal vein demonstrates normal compressibility flow and wave patterns in response to respiration and augmentation. There is no evidence for deep venous thrombosis. 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 Impression: No evidence for deep venous thrombosis. Electronically Signed by Stas Miller MD 10/10/2018 06:00 P
[2018-10-10] MEDS: HumaLOG INSULIN (NovoLOG) PER UNIT SC SCH ×2 (18:26→21:00)
[2018-10-10] MEDS ORDERED: MIDAZOLAM INJ 2 MG/2 ML VIAL (J2250) As Ordered ONE (18:38)
[2018-10-10 18:42] LABS: HEMATOCRIT 42.4 % (36.0-47.0); HEMOGLOBIN 14.2 g/dl (12.0-15.5); MEAN CORPUSCULAR HEMOGLOBIN 29.5 pg (27.0-33.0); MEAN CORPUSCULAR HGB CONC 33.5 g/dl (32.0-36.5); PLATELET COUNT, AUTOMATED 247 10^3/uL (150-450); RED BLOOD COUNT 4.82 10^6/uL (4.00-5.40); WHITE BLOOD COUNT 18.3 10^3/uL (4.0-10.0)
[2018-10-10] MEDS ORDERED: LIDOCAINE 1% SDV INJ 30 ML VIAL As Ordered ONE (18:52)
[2018-10-10] MEDS ORDERED: HEPARIN SOD (PORCINE) 5000 UNITS/ML VIAL As Ordered ONE (18:52)
[2018-10-10] MEDS ORDERED: BUPIVACAINE HCL 0.5% 30 ML VIAL As Ordered ONE (18:52)
[2018-10-10 19:16] LABS: TROPONIN I 0.04 NG/ML (< 0.10)
[2018-10-10] MEDS ORDERED: METOPROLOL 5 MG/5 ML VIAL IV SCH (19:45)
[2018-10-10] MEDS ORDERED: DILUENT IV ONE (20:00)
[2018-10-10] MEDS ORDERED: ALTEPLASE RECOMBINANT IV ONE (20:00)
[2018-10-10] MEDS: ALTEPLASE RECOMBINANT 25 MG in NS 225 ML IV SCH (20:22)
[2018-10-10] MEDS ORDERED: METOPROLOL 5 MG/5 ML VIAL IV STA (20:41)
[2018-10-10] MEDS ORDERED: ONDANSETRON 4MG/2ML VIAL (J2405) As Ordered ONE (21:16)
[2018-10-10] MEDS: HEPARIN DRIP 25,000 UNITS in APPROPRIATE DILUENT 1 EA IV SCH (21:24)
[2018-10-10] MEDS: ONDANSETRON 4MG/2ML VIAL (J2405) IV PRN (22:27)
[2018-10-10] MEDS: LETROZOLE 2.5 MG TAB PO SCH (22:27)
--- NOTE | 2018-10-10 22:31 | ECGEPIP ---
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
--- NOTE | 2018-10-10 23:15 | ECHO ---
DATE OF PROCEDURE: 10/10/2018 REFERRING PHYSICIAN: Tank Covington MD INDICATION: Pulmonary embolism. HEIGHT: 163 cm WEIGHT: 80 kg DIMENSIONS IVS: 1.1 LV: 2.6 LVPW: 1.1 LA: 2.4 Aorta: 3.0 RV: 4.1 Mitral E wave velocity: 57, A wave: 80. E prime septal: 4.9 E prime lateral: 8.2 FINDINGS The study is of acceptable technical quality even though apical and subcostal views were very limited. Left ventricle is normal size and normal systolic function, I estimate ejection fraction (EF) around 65-70%. No segmental wall motion abnormalities are appreciated. Right ventricle appears dilated and mildly hypokinetic. Left atrium is probably normal size. Right atrium was poorly visualized. Aortic valve is sclerotic, but it has three cusps and grossly preserved mobility. Mitral and tricuspid valves appear normal. Pulmonic valve was not well seen. Inferior vena cava was not visualized. There is no pericardial effusion. Aortic root appears normal. Aortic arch and abdominal aorta also appears grossly normal. Doppler interrogation of aortic valve reveals trace insufficiency and trivial stenosis with peak gradient 12 mmHg. There is no significant mitral stenosis or insufficiency. There is mild or possibly mild to moderate tricuspid insufficiency. Calculated pulmonary artery pressure is at minimum in 50s corresponding to moderate pulmonary hypertension. Trace pulmonic insufficiency seen. Mitral inflow pattern and tissue Doppler imaging of mitral annulus reveal grade 1 diastolic dysfunction. CONCLUSIONS: 1. Study is of fair technical quality. 2. Normal left ventricle (LV) size with preserved LV systolic function and grade 1 diastolic dysfunction. 3. Dilated mildly hypokinetic right ventricle with minimum moderate pulmonary hypertension. 4. Aortic sclerosis with trivial stenosis and trace insufficiency. 5. Functionally competent mitral valve. 6. Uglz-bi-bokqoxmn tricuspid insufficiency. 7. Unable to estimate central venous pressure. COMMENT Subacute bacterial endocarditis (SBE) prophylaxis is not recommended. Study is indicative of hemodynamic significance of pulmonary embolism.
[2018-10-11] VITALS (24 sets, daily range): BP systolic 83–135; BP diastolic 50–97
[2018-10-11 00:25] LABS: HEMATOCRIT 40.3 % (36.0-47.0); HEMOGLOBIN 13.3 g/dl (12.0-15.5)
[2018-10-11 00:37] LABS: PARTIAL THROMBOPLASTIN TIME 66.6 SECONDS (25.4-37.6)
[2018-10-11] MEDS: METOPROLOL 5 MG/5 ML VIAL IV SCH ×3 (01:43→22:47)
[2018-10-11] MEDS: MORPHINE 4 MG/ML 1ML VIAL/SYRINGE (J2270) IV PRN ×2 (04:20→22:47)
[2018-10-11 06:20] LABS: HEMATOCRIT 38.9 % (36.0-47.0); HEMOGLOBIN 12.9 g/dl (12.0-15.5); MEAN CORPUSCULAR HEMOGLOBIN 30.1 pg (27.0-33.0); MEAN CORPUSCULAR HGB CONC 33.2 g/dl (32.0-36.5); MEAN CORPUSCULAR VOLUME 90.9 fl (80.0-96.0); PLATELET COUNT, AUTOMATED 209 10^3/uL (150-450); RED BLOOD COUNT 4.28 10^6/uL (4.00-5.40)
[2018-10-11 06:38] LABS: PARTIAL THROMBOPLASTIN TIME 42.8 SECONDS (25.4-37.6)
[2018-10-11 06:40] LABS: BLOOD UREA NITROGEN 18 MG/DL (7-18); CARBON DIOXIDE LEVEL 28 MEQ/L (21-32); CHLORIDE LEVEL 104 MEQ/L (98-107); GLOMERULAR FILTRATION RATE > 60.0 (>32); GLUCOSE, FASTING 141 MG/DL (70-100); POTASSIUM SERUM 3.5 MEQ/L (3.5-5.1); SODIUM LEVEL 139 MEQ/L (136-145)
[2018-10-11] MEDS: HumaLOG INSULIN (NovoLOG) PER UNIT SC SCH ×4 (08:49→21:00)
[2018-10-11] MEDS: ACETAMINOPHEN TAB 650MG DOSE (2X325MG) PO PRN ×2 (08:58→17:21)
[2018-10-11 12:26] LABS: HEMATOCRIT 38.1 % (36.0-47.0); HEMOGLOBIN 12.8 g/dl (12.0-15.5)
[2018-10-11 12:40] LABS: PARTIAL THROMBOPLASTIN TIME 38.7 SECONDS (25.4-37.6)
--- NOTE | 2018-10-11 14:10 | IPNPDOC ---
Subjective Date Seen The patient was seen on 10/11/18. Subjective Chief Complaint/HPI Ms. Hernandez is pleasantly confused but has no complaints for me today. Nursing reports she has been stable and also have no specific concerns for medical management today. They report that she has done well on the infused TPA at that Dr. Welsh is considering stopping this later in the day. Nursing also reports that her daughter is concerned she may have a urinary tract infection; apparently she was treated for one about 2 weeks ago. General: Reports: Normal Appetite Constitutional: Denies: Chills, Fever Pulmonary: Denies: Cough Genitourinary: Denies: Dysuria Psych: Reports: Anxiety, Memory Issues Objective Physical Examination General Exam: Positive: Alert, Cooperative (laying comfortably in her bed when I entered the room), No Acute Distress Eye Exam: Positive: Conjunctiva & lids normal; Negative: Sclera icteric ENT Exam: Positive: Mucous membr. moist/pink Neck Exam: Negative: Lymphadenopathy Chest Exam: Positive: Clear to auscultation, Normal air movement Heart Exam: Positive: Rate Normal, Normal S1, Normal S2; Negative: Murmurs Abdomen Exam: Positive: Normal bowel sounds, Soft; Negative: Tenderness Extremity Exam: Positive: Edema (there is trace malleolar pitting edema only) Psych Exam: Positive: Anxiety (she seems nervous about her current medical condition); Negative: Memory Intact, Oriented x 3 (oriented to person but not place or time at this moment) Assessment /Plan Problems (1) Bilateral pulmonary embolism Status: Acute Response to Treatment: Stable Problem Text: Her vital signs, including her oxygen saturations, are currently stable. She is on a TPA infusion managed by vascular surgery. Appreciate their help with this. 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 She is on letrozole for palliation. Her PE is probably from hypercoagulability as a paraneoplastic symptom, however, it should be noted that letrozole can have thromboembolism as a side effect (~3%). It may be worth a discussion with her oncologist to see if this medication is important enough to continue, or if it should be stopped in light of her PEs. (3) Leukocytosis Status: Acute Response to Treatment: Improving Discussed With: Nurse, Patient Problem Text: Her daughter is concerned about the possibility of an incompletely treated urinary tract infection. Her initial urinalysis does please concern for infection, but the patient is asymptomatic when I speak to her. She is currently not on antibiotics, but her leukocytosis is improving. There is a u rine culture pending. I will wait for the results of that and make a determination as to whether she needs further treatment based on those results and her symptoms and vitals at that time. (4) Dementia Status: Chronic Response to Treatment: Stable Problem Specific Plan: Monitor Clinically Problem Text: She is clinically stable, but not completely reliable as a historian which makes things like addressing symptoms more difficult. Plan/VTE VTE Prophylaxis Ordered?: Yes (heparin and TPA) VS, I&O, 24H, Fishbone Vital Signs/I&O Vital Signs Date Time Temp Pulse Resp B/P (MAP) Pulse Ox O2 Delivery O2 Flow Rate FiO2 10/11/18 10:03 71 103/60 (74) 95 2.0 10/11/18 08:03 97.0 20 10/10/18 18:48 Nasal Cannula I&O- Last 24 Hours up to 6 AM 10/11/18 06:00 Intake Total 1446 ml Output Total 495 ml Balance 951 ml Laboratory Data 24H LABS Laboratory Tests 2 10/10/18 14:47: Urine Color SHLOMO, Urine Appearance CLOUDYH, Urine pH 5.0, Urine Specific [place] 1.018, Urine Protein NEGATIVE, Urine Glucose (UA) 3+H, Urine Ketones TRACEH, Urine Blood 1+H, Urine Nitrite NEGATIVE, Urine Bilirubin NEGATIVE, Urine Urobilinogen 4.0H, Urine Leukocyte Esterase 2+H, Urine WBC (Auto) 2, Urine RBC (Auto) 1, Urine Hyaline Casts (Auto) 0, Urine Bacteria (Auto) 3+H, Urine Squamous Epithelial Cells 0, Urine Mucus (Auto) SMALL, Urine Sperm (Auto) 10/10/18 18:24: Bedside Glucose (Misc Panel) 230H 10/10/18 18:30: Nucleated Red Blood Cells % (auto) 0.0, Activated Partial Thromboplast Time 189.6*H, Lactic Acid Followup at 4 Hours 1.4, Troponin I 0.04#, OP-Ejr-E-Type Natriuretic Peptide 5690H 10/10/18 21:35: Bedside Glucose (Misc Panel) 176H 10/11/18 00:12: Activated Partial Thromboplast Time 66.6H, Fibrinogen 522H, Troponin I 0.04 10/11/18 05:59: Activated Partial Thromboplast Time 42.8H, Fibrinogen 568H, Nucleated Red Blood Cells % (auto) 0.0, Anion Gap 7L, Glomerular Filtration Rate > 60.0, Blood Urea Nitrogen 18, Creatinine 0.60, Sodium Level 139, Potassium Level 3.5, Chloride Level 104, Carbon Dioxide Level 28, Calcium Level 8.0L 10/11/18 11:38: Bedside Glucose (Misc Panel) 168H 10/11/18 12:01: Activated Partial Thromboplast Time 38.7H, Fibrinogen 517H CBC/BMP Laboratory Tests 10/10/18 18:30 Red Blood Count 4.82, Mean Corpuscular Volume 88.0, Mean Corpuscular Hemoglobin 29.5, Mean Corpuscular Hemoglobin Concent 33.5, Red Cell Distribution Width 13.5 10/11/18 00:12 10/11/18 05:59 Red Blood Count 4.28, Mean Corpuscular Volume 90.9, Mean Corpuscular Hemoglobin 30.1, Mean Corpuscular Hemoglobin Concent 33.2, Red Cell Distribution Width 13.6, Calcium Level 8.0 L 10/11/18 12:01 Microbiology Microbiology 10/10/18 Blood Culture, Received Pending 10/10/18 Blood Culture - Preliminary, Resulted No growth after 24 hours . All specim... 10/10/18 Urine Culture, Received Pending Reece Bruce MD Oct 11, 2018 14:10
[2018-10-11] MEDS: LETROZOLE 2.5 MG TAB PO SCH (17:20)
[2018-10-11 18:27] LABS: HEMATOCRIT 38.1 % (36.0-47.0); HEMOGLOBIN 12.7 g/dl (12.0-15.5)
[2018-10-11 18:39] LABS: PARTIAL THROMBOPLASTIN TIME 39.1 SECONDS (25.4-37.6)
[2018-10-11] MEDS: HEPARIN DRIP 25,000 UNITS in APPROPRIATE DILUENT 1 EA IV SCH (20:00)
[2018-10-11] MEDS: ALTEPLASE RECOMBINANT 25 MG in NS 225 ML IV SCH (20:36)
[2018-10-11] MEDS ORDERED: METOPROLOL 5 MG/5 ML VIAL As Ordered ONE ×2 (22:37→23:30)
[2018-10-11] MEDS ORDERED: METOPROLOL 5 MG/5 ML VIAL IV STA (23:34)
[2018-10-12] VITALS (30 sets, daily range): BP systolic 90–139; BP diastolic 52–79
[2018-10-12 00:28] LABS: HEMATOCRIT 39.6 % (36.0-47.0)
[2018-10-12 00:40] LABS: PARTIAL THROMBOPLASTIN TIME 57.7 SECONDS (25.4-37.6)
[2018-10-12] MEDS: NYSTATIN 100,000 UNITS/GM TOPICAL PWD 15 GM TOP PRN (03:26)
[2018-10-12] MEDS: MORPHINE 4 MG/ML 1ML VIAL/SYRINGE (J2270) IV PRN ×2 (03:29→12:24)
[2018-10-12] MEDS: METOPROLOL 5 MG/5 ML VIAL IV SCH (05:02)
[2018-10-12 06:27] LABS: HEMATOCRIT 37.2 % (36.0-47.0); HEMOGLOBIN 12.3 g/dl (12.0-15.5); MEAN CORPUSCULAR HEMOGLOBIN 30.2 pg (27.0-33.0); MEAN CORPUSCULAR HGB CONC 33.1 g/dl (32.0-36.5); MEAN CORPUSCULAR VOLUME 91.4 fl (80.0-96.0); PLATELET COUNT, AUTOMATED 201 10^3/uL (150-450); RED BLOOD COUNT 4.07 10^6/uL (4.00-5.40); WHITE BLOOD COUNT 10.8 10^3/uL (4.0-10.0)
[2018-10-12 06:39] LABS: PARTIAL THROMBOPLASTIN TIME 56.3 SECONDS (25.4-37.6)
[2018-10-12 06:50] LABS: BLOOD UREA NITROGEN 16 MG/DL (7-18); CALCIUM LEVEL 8.2 MG/DL (8.8-10.2); CARBON DIOXIDE LEVEL 27 MEQ/L (21-32); CHLORIDE LEVEL 103 MEQ/L (98-107); CREATININE FOR GFR 0.66 MG/DL (0.55-1.30); GLOMERULAR FILTRATION RATE > 60.0 (>32); GLUCOSE, FASTING 195 MG/DL (70-100); POTASSIUM SERUM 3.4 MEQ/L (3.5-5.1); SODIUM LEVEL 140 MEQ/L (136-145)
[2018-10-12] MEDS: HumaLOG INSULIN (NovoLOG) PER UNIT SC SCH ×4 (09:01→20:46)
[2018-10-12] MEDS: HEPARIN DRIP 25,000 UNITS in APPROPRIATE DILUENT 1 EA IV SCH (09:04)
[2018-10-12] MEDS ORDERED: POTASSIUM CHLORIDE 10 MEQ SR TABLET PO ONE (09:15)
--- NOTE | 2018-10-12 09:28 | IPNPDOC ---
Date Seen The patient was seen on 10/12/18. Progress Note OVERNIGHT EVENTS: He appears as though based on telemetry she was in a rapid ventricular rate atrial fibrillation from 11 PM to approximately 5 AM she did receive some IV Lopressor during that time. She does not recall any of these events SUBJECTIVE: Patient patient continues to complain of some right-sided rib pain. She is oriented to person she thinks she is in [facility] where she lives. She cannot tell me the correct year who the president is or why she is in the hospital. She does know the month is November. She does have pain with deep inspiration otherwise patient denies shortness breath, nausea, vomiting, fevers, chills OBJECTIVE PHYSICAL EXAMINATION: VITAL SIGNS: Please see below. GENERAL: Pleasant elderly female lying in bed at a 35 angle awake al ert and answers questions appropriately no acute distress HEENT: Moist mucous membranes no elevation and CVP CARDIOVASCULAR: S1 S2 regular no additional heart sounds appreciated. She is not tachycardic at this time RESPIRATORY: Clear to auscultation bilaterally. Pain with inspiration as the patient does wince ABDOMINAL: Bowel sounds present abdomen soft and nontender EXTREMITIES: No clubbing cyanosis or appreciable edema today NEUROLOGICAL: Spontaneously moves all 4 extremities cranial 2 through 12 grossly intact no gross focal deficits appreciated PSYCHOLOGICAL: Appropriate LABORATORY DATA: See below. MICROBIOLOGY: Please see below. IMAGING: CT angiography of the chest:1. Extensive bilateral pulmonary emboli originating in the right and left main pulmonary arteries with mild bibasilar atelectasis. 2. Pulmonary vascular congestion and poor inspiratory effort limits evaluation. 3. 1.5 cm nodular mass in the right upper lobe with small satellite lesions. 4. Large heterogeneous right thyroid goiter greater than 6.8 cm maximal diameter with mass effect on the trachea and vascular structures of the thoracic inlet. CT abdomen and pelvis:1. Lung bases demonstrate pulmonary emboli and bibasilar atelectasis reported on patient's chest CT. 2. Age-related changes to the kidneys with suspected small cysts incompletely evaluated due to respiratory motion artifact. 3. Extensive sigmoid diverticulosis without acute diverticulitis or obvious acute enteric process. 4. 1 cm fat containing periumbilical hernia. 5. Possible small posterior bladder diverticulum. 6. No acute abdominopelvic pathology appreciated. Specifically, no ascites, focal inflammatory changes or adenopathy noted. Vascular ultrasound:No evidence for deep venous thrombosis. Echocardiogram:1. Study is of fair technical quality. 2. Normal left ventricle (LV) size with preserved LV systolic function and grade 1 diastolic dysfunction. 3. Dilated mildly hypokinetic right ventricle with minimum moderate pulmonary hypertension. 4. Aortic sclerosis with trivial stenosis and trace insufficiency. 5. Functionally competent mitral valve. 6. [id number]-px-[id number] tricuspid insufficiency. 7. Unable to estimate central venous pressure. ASSESSMENT & PLAN: This is a 87-year-old female with extensive bilateral pulmonary emboli and new onset atrial fibrillation with rapid ventricular response. PROBLEMS: 1. Extensive bilateral pulmonary emboli: She is likely hypercoagulable secondary to her malignancy and possibly her letrozole. She did have a stat echocardiogram that indicated significant RV strain and as such has received TPA and continues to. Dr. Welsh of vascular surgery help is greatly appreciated. The patient is certainly markedly improved from the time of her presentation in the emergency room. Once she completes TPA she should be considered for possibly oral anticoagulation potentially with Eliquis. I suspect that she will remain on letrozole and her malignancy will go untreated as previously decided she should remain on anticoagulation the rest of her life if she is able to tolerate so. She is less hypoxic today and continuous with expected improvement 2.Breast cancer: Followed by daily Edwards in oncology patient elected for no further chemotherapy or aggressive treatments and site of her dementia. She is on letrozole as palliative therapy. 3. Diabetes: We'll provide her with sliding scale consistent carb 2 g sodium diet hypoglycemic protocol 4. Chronic constipation: Continue with her home bowel regimen 5. Atrial fibrillation with rapid ventricular response: Likely secondary to her extensive PE. I'll convert her IV Lopressor to by mouth with holding parameters and continue to monitor she will require anticoagulation for her PE as outlined above 7. Abnormal urinalysis: The patient is unreliably able to provide a history of symptoms given her dementia is had some incontinence her urine culture is grea ter than 100,000 colony-forming units positive I will treat her with ciprofloxacin 500 mg by mouth twice a day for 7 days DVT PROPHYLAXIS: TPA DISPOSITION: Pending clinical improvement VS, I&O, 24H, Fishbone Vital Signs/I&O Vital Signs Date Time Temp Pulse Resp B/P (MAP) Pulse Ox O2 Delivery O2 Flow Rate FiO2 10/12/18 06:31 71 131/61 (84) 94 2.0 10/12/18 04:00 97.6 6/2/19 03:39 21 10/10/18 18:48 Nasal Cannula I&O- Last 24 Hours up to 6 AM 10/12/18 06:00 Intake Total 1224 ml Output Total 250 ml Balance 974 ml Laboratory Data 24H LABS Laboratory Tests 2 10/11/18 11:38: Bedside Glucose (Misc Panel) 168H 10/11/18 12:01: Activated Partial Thromboplast Time 38.7H, Fibrinogen 517H 10/11/18 16:46: Bedside Glucose (Misc Panel) 182H 10/11/18 18:14: Activated Partial Thromboplast Time 39.1H, Fibrinogen 544H 10/11/18 20:52: Bedside Glucose (Misc Panel) 228H 10/12/18 00:18: Activated Partial Thromboplast Time 57.7H, Fibrinogen 533H 10/12/18 06:04: Activated Partial Thromboplast Time 56.3H, Fibrinogen 492H, Nucleated Red Blood Cells % (auto) 0.0, Anion Gap 10, Glomerular Filtration Rate > 60.0, Blood Urea Nitrogen 16, Creatinine 0.66, Sodium Level 140, Potassium Level 3.4L, Chloride Level 103, Carbon Dioxide Level 27, Calcium Level 8.2L CBC/BMP Laboratory Tests 10/11/18 12:01 10/11/18 18:14 10/12/18 00:18 10/12/18 06:04 Red Blood Count 4.07, Mean Corpuscular Volume 91.4, Mean Corpuscular Hemoglobin 30.2, Mean Corpuscular Hemoglobin Concent 33.1, Red Cell Distribution Width 13.5, Calcium Level 8.2 L Microbiology Microbiology 10/10/18 Blood Culture - Preliminary, Resulted No growth after 24 hours . All specim... 10/10/18 Blood Culture - Preliminary, Resulted No growth after 24 hours . All specim... 10/10/18 Urine Culture - Preliminary, Resulted Escherichia Coli JAX HILARIO MD Oct 12, 2018 09:28
[2018-10-12 09:29] LABS: MAGNESIUM LEVEL 1.8 MG/DL (1.8-2.4)
[2018-10-12] MEDS: CIPROFLOXACIN 500 MG TAB PO SCH ×2 (12:20→17:24)
[2018-10-12] MEDS: METOPROLOL TART 12.5 MG PER 1/2 TAB PO SCH ×3 (12:21→23:51)
[2018-10-12 12:50] LABS: HEMATOCRIT 37.3 % (36.0-47.0); HEMOGLOBIN 12.1 g/dl (12.0-15.5)
[2018-10-12 12:57] LABS: PARTIAL THROMBOPLASTIN TIME 41.1 SECONDS (25.4-37.6)
--- NOTE | 2018-10-12 13:10 | ECGEPIP ---
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 FIBRILLATION IS NEW Electronically Signed on 10-12-2018 13:10:23 EDT by Marissa Garcia
--- NOTE | 2018-10-12 13:20 | ECGEPIP ---
[facility] Test Date: 2018-10-11 Pat Name: PRISCILLA CANO Department: Room: [place] [address] Gender: Female Nurse Receptionist: : 1930 Requested By: Eddie Irvin Order Number: [id number] Reading MD: Marissa Garcia Measurements Intervals [place] Rate: 148 P: 250 NM: 109 QRS: QRSD: 122 T: 24 QT: 314 QTc: 494 Interpretive Statements JUNCTIONAL TACHYCARDIA, POSSIBLE ATRIAL FLUTTER POSSIBLE RIGHT VENTRICULAR CONDUCTION DELAY LEFT ANTERIOR FASCICULAR BLOCK ST DEPRESSION, CONSIDER ISCHEMIA COMPARED TO 10/10/18 JUNCTION TACHYCARDIA/ A. FLUTTER REPLACED ATRIAL FIBRILLATION Electronically Signed on 10-12-2018 13:20:07 EDT by Marissa Garcia
[2018-10-12] MEDS: LETROZOLE 2.5 MG TAB PO SCH (17:24)
[2018-10-13] VITALS (15 sets, daily range): BP systolic 100–166; BP diastolic 50–88
[2018-10-13] MEDS: METOPROLOL TART 12.5 MG PER 1/2 TAB PO SCH ×4 (06:00→23:38)
[2018-10-13 06:01] LABS: HEMATOCRIT 35.9 % (36.0-47.0); HEMOGLOBIN 11.7 g/dl (12.0-15.5); MEAN CORPUSCULAR HEMOGLOBIN 29.2 pg (27.0-33.0); MEAN CORPUSCULAR HGB CONC 32.6 g/dl (32.0-36.5); MEAN CORPUSCULAR VOLUME 89.5 fl (80.0-96.0); PLATELET COUNT, AUTOMATED 194 10^3/uL (150-450); RED BLOOD COUNT 4.01 10^6/uL (4.00-5.40); WHITE BLOOD COUNT 9.1 10^3/uL (4.0-10.0)
[2018-10-13] MEDS: CIPROFLOXACIN 500 MG TAB PO SCH ×2 (06:24→17:07)
[2018-10-13 06:34] LABS: BLOOD UREA NITROGEN 10 MG/DL (7-18); CALCIUM LEVEL 7.9 MG/DL (8.8-10.2); CARBON DIOXIDE LEVEL 30 MEQ/L (21-32); CHLORIDE LEVEL 106 MEQ/L (98-107); CREATININE FOR GFR 0.59 MG/DL (0.55-1.30); GLOMERULAR FILTRATION RATE > 60.0 (>32); GLUCOSE, FASTING 157 MG/DL (70-100); POTASSIUM SERUM 3.5 MEQ/L (3.5-5.1); SODIUM LEVEL 141 MEQ/L (136-145)
[2018-10-13] MEDS: HumaLOG INSULIN (NovoLOG) PER UNIT SC SCH ×4 (07:22→21:00)
[2018-10-13] MEDS: NYSTATIN 100,000 UNITS/GM TOPICAL PWD 15 GM TOP PRN (12:59)
[2018-10-13] MEDS: ACETAMINOPHEN TAB 650MG DOSE (2X325MG) PO PRN (12:59)
--- NOTE | 2018-10-13 13:56 | CR.PDOC ---
General Date of Consultation: Oct 13, [address] Welsh. REASON FOR CONSULTATION: PE HPI: Patient is an 87-year-old female who was out with family eating lunch when shortly thereafter she developed the sudden onset of excruciating right-sided chest pain, worse with deep inspiration, associated shortness of breath. The patient does have some baseline dementia. CTA indicated extensive bilateral pulmonary emboli. Vascular surgery was consulted re PE. No acute medical complaints today. Denies any fevers, chills, weakness, fatigue, Headache, Chest Pain, Shortness of breath, cough, palpitations, abdominal pain, N/V/D or changes in bowel or bladder habits. PAST MEDICAL HISTORY: 1. Diastolic congestive heart failure. 2. Hypertension. 3. Type 2 diabetes 4. Breast cancer on palliative treatments only 5. Gastroesophageal reflux disease. 6. Dementia 7. Chronic constipation PAST SURGICAL HISTORY: 1. Left total knee replacement. 2. Glaucoma surgery bilaterally. 3. Left foot bunion and hammertoe corrective surgery 4. Colonoscopy. SOCIAL HISTORY: Lives : [facility], Tobacco use: Denies. ETOH: Denies FAMHX: no FH clotting or bleeding D/O. ROS: As noted in HPI, otherwise 11pt ROS of systems reviewed and unremarkable. PE: GEN: 87yoF, appears stated age. Well-nourished, well developed. No acute distress. Alert and oriented x 3. Pleasant, interactive. HEENT: Normocephalic, atraumatic. Extraocular movements are intact. No nystagmus appreciated. Sclera are nonicteric. Conjunctiva without injection. Nose midline. No facial asymmetry. Moist mucous membranes. CHEST: Regular rate and rhythm, +S1, +S2 LUNGS: Clear to auscultation bilaterally. No wheezes, rales, or rhonchi. Breathing appears symmetric and easy. ABD: Round, soft, non-tender, non-distended. +Bowel sounds throughout. No rebound or guarding. EXT: Pulses 2+ bilaterally dorsalis pedis and radial. No lower extremity edema appreciated. SKIN: [place], dry, warm. Capillary refill <2sec. No rashes. NEURO: Alert and oriented x 3. Cranial nerves III-XII are intact. No focal deficits appreciated. CTA chest 1. Extensive bilateral pulmonary emboli originating in the right and left main pulmonary arteries with mild bibasilar atelectasis. 2. Pulmonary vascular congestion and poor inspiratory effort limits evaluation. 3. 1.5 cm nodular mass in the right upper lobe with small satellite lesions. 4. Large heterogeneous right thyroid goiter greater than 6.8 cm maximal diameter with mass effect on the trachea and vascular structures of the thoracic inlet. Electronically Signed by Stas Miller MD 10/10/2018 04:17 P US LEs No evidence for deep venous thrombosis. Electronically Signed by Stas Miller MD 10/10/2018 06:00 P A&P: 1. Extensive bilateral pulmonary emboli: Likely hypercoagulable secondary to her malignancy and possibly her letrozole. TTE with RV strain S/P pulmonary thrombolysis as per Dr Welsh. Alteplase d/cd Saturday10/12/18. heparin gtt d/c Noon today. Plan to change to Lovenox 80 mg SQ Q12. 2.Breast cancer: Followed by Estephanie Mackenzie MD in oncology, patient elected for no further chemotherapy or aggressive treatments and site of her dementia. She is on letrozole as palliative therapy. DVT prophylaxis. SQ Lovenox as above. Thank you for your consultation. We will continue to follow along with you. Vital Signs/I&O Vital Signs Date Time Temp Pulse Resp B/P (MAP) Pulse Ox O2 Delivery O2 Flow Rate FiO2 10/13/18 12:13 80 146/64 10/13/18 12:00 1.0 10/13/18 10:00 95 10/13/18 08:00 97.9 18 10/10/18 18:48 Nasal Cannula I&O- Last 24 Hours up to 6 AM 10/13/18 05:59 Intake Total 1175 ml Balance 1175 ml Laboratory Data Labs 24H Laboratory Tests 2 10/12/18 17:11: Bedside Glucose (Misc Panel) 145H 10/12/18 17:59: Activated Partial Thromboplast Time 53.0H 10/12/18 20:37: Bedside Glucose (Misc Panel) 175H 10/12/18 23:47: Activated Partial Thromboplast Time 58.7H 10/13/18 05:49: Nucleated Red Blood Cells % (auto) 0.0, Activated Partial Thromboplast Time 69.5H, Anion Gap 5L, Glomerular Filtration Rate > 60.0, Blood Urea Nitrogen 10, Creatinine 0.59, Sodium Level 141, Potassium Level 3.5, Chloride Level 106, C arbon Dioxide Level 30, Calcium Level 7.9L 10/13/18 11:46: Bedside Glucose (Misc Panel) 186H CBC/BMP Laboratory Tests 10/13/18 05:49 Red Blood Count 4.01, Mean Corpuscular Volume 89.5, Mean Corpuscular Hemoglobin 29.2, Mean Corpuscular Hemoglobin Concent 32.6, Red Cell Distribution Width 13.7, Calcium Level 7.9 L Microbiology Microbiology 10/10/18 Blood Culture - Preliminary, Resulted No Growth after 48 hours. All Specime... 10/10/18 Blood Culture - Preliminary, Resulted No Growth after 48 hours. All Specime... 10/10/18 Urine Culture - Final, Complete Escherichia Coli Aerococcus Urinae Allergies Coded Allergies: Penicillins (Verified Allergy, Intermediate, Rash, 09/01/18) Home Medications Scheduled Dulaglutide (Trulicity) 0.75 Mg/0.5 Ml Inj, 0.75 MG SC Q7D, (Reported) SUNDAYS AT 1800 Letrozole (Letrozole) 2.5 Mg Tab, 2.5 MG PO QPM, (Reported) AT 1700 Metformin HCl (Metformin HCl) 1,000 Mg Tablet, 1,000 MG PO BID, (Reported) Nystatin (Nystatin Powder) 15 Gm Powder, 1 APLCT TOP BID, (Reported) Scheduled PRN Acetaminophen (Acetaminophen) 325 Mg Tab, 650 MG PO Q4H PRN for PAIN, (Reported) Milk Of Magnesia (Milk of Magnesia) 2,400 Mg/10 Ml Oral.susp, 10 ML PO DAILY PRN for CONSTIPATION, (Reported) Ondansetron (Ondansetron Odt) 4 Mg Tab.rapdis, 4 MG PO Q6H PRN for NAUSEA, (Reported) Leticia Ibrahim Oct 13, 2018 13:56
[2018-10-13] MEDS: ENOXAPARIN 80 MG/0.8 ML SYRINGE (J1650) SC SCH (15:18)
[2018-10-13] MEDS: LETROZOLE 2.5 MG TAB PO SCH (16:46)
--- NOTE | 2018-10-13 16:47 | IPNPDOC ---
Text Note Date of Service The patient was seen on 10/13/18. NOTE Ms. Hernandez is seen on bedside rounds this morning, she is laying in bed, she k nows who the president is, thats shes in [facility] in [facility], her full name but thinks its November 2019. She has no complaints except she feels fatigued. SUBJECTIVE: Patient is laying in bed in [facility], is tired but has no complaints. Otherwise patient denies chest pain, shortness breath, nausea, vomiting, fevers, chills. OBJECTIVE PHYSICAL EXAMINATION: VITAL SIGNS: Please see below. GENERAL: Pleasant 87 y/o female sitting up in bed awake alert oriented speaking in complete sentences no acute distress HEENT: [Moist mucous membranes no elevation and CVP] CARDIOVASCULAR: S1 S2 regular no additional heart sounds appreciated RESPIRATORY: Clear to auscultation bilaterally, no rales, rhonchi or wheezing, no crackles ABDOMINAL: Bowel sounds present abdomen soft and nontender, no distension or rebound ridgity or guarding, no hepatosplenomegaly or masses appreciated EXTREMITIES: No clubbing cyanosis or edema NEUROLOGICAL: Spontaneously moves all 4 extremities, no focal deficits appreciated PSYCHOLOGICAL: Appropriate affect LABORATORY DATA, MICROBIOLOGY: Please see below. ASSESSMENT AND PLAN: This is a 87 yo female admitted for b/l pulmonary emoboli. PROBLEMS: 1. Extensive bilateral pulmonary emboli -She does have underlying malignancy and letrozole use , making her hypercoagulable -ECHO did demonstrate RV strain pattern and she received TPA, Dr Welsh of vascular sx on the case and his help is greatly appreciated -She should be anticoagulated the remainder of her life if tolerable, could potentially switch to NOAC once TPA complete, she is beginning Lovenox today -96% on 1 L 2.Breast cancer - Followed by daily [place] in oncology - patient elected for no further chemotherapy or aggressive treatments -She is on letrozole as palliative therapy 3. Diabetes -SSI, consistent carb diet 4. Chronic constipation -Continue with her home bowel regimen 5. Atrial fibrillation with rapid ventricular response - Likely secondary to her extensive PE -C/w Lopressor w. hold parameters, she is rate controlled at this time -she is on AC for her PE as outlined above 7. Abnormal urinalysis -she denies dysuria or blood in urine fo rme, she is on ciprofloxacin 500 mg, we can complete 7 day course of abx as she does have soem baseline dementia and > 100K CFU on culture Disposition: She will need to work with physical therapy, we will wean down her O2, she is being placed on lovenox today by vascular surgery. VS,Fishbone, I+O VS, Fishbone, I+O Laboratory Tests 10/13/18 05:49 Red Blood Count 4.01, Mean Corpuscular Volume 89.5, Mean Corpuscular Hemoglobin 29.2, Mean Corpuscular Hemoglobin Concent 32.6, Red Cell Distribution Width 13.7, Calcium Level 7.9 L Vital Signs Date Time Temp Pulse Resp B/P (MAP) Pulse Ox O2 Delivery O2 Flow Rate FiO2 10/13/18 12:13 80 146/64 10/13/18 12:00 1.0 10/13/18 12:00 98.0 18 96 10/10/18 18:48 Nasal Cannula I&O- Last 24 Hours up to 6 AM 10/13/18 06:00 Intake Total 1195 ml Balance 1195 ml GME ATTESTATION GME ATTESTATION My faculty preceptor for this patient encounter was physically present during the encounter and was fully available. All aspects of the patient interview, examination, medical decision making process, and medical care plan development were reviewed and approved by the faculty preceptor. The faculty preceptor is aware and concurs with the plan as stated in the body of this note and will attest to such by his/her cosignature. ATTENDING NOTE I, Ema Beth, have both independently examined this patient as well as reviewed the documentation. I have discussed in detail with the resident the findings and plan of treatment as documented in the residents documentation and agree with what is stated. I will continue to follow the patient and offer further guidance to the patients care as necessary during this hospital stay. EMMANUEL BLOCK DO Oct 13, 2018 16:47 EMA BETH MD Oct 13, 2018 17:19
[2018-10-13] MEDS ORDERED: METOPROLOL 5 MG/5 ML VIAL IV STA (16:59)
[2018-10-13] MEDS ORDERED: METOPROLOL 5 MG/5 ML VIAL As Ordered ONE (17:01)
[2018-10-13] MEDS: ONDANSETRON 4MG/2ML VIAL (J2405) IV PRN (17:56)
[2018-10-14] VITALS (12 sets, daily range): BP systolic 99–150; BP diastolic 58–77
[2018-10-14] MEDS: ENOXAPARIN 80 MG/0.8 ML SYRINGE (J1650) SC SCH ×2 (03:18→17:13)
[2018-10-14 05:29] LABS: HEMATOCRIT 36.8 % (36.0-47.0); HEMOGLOBIN 12.1 g/dl (12.0-15.5); MEAN CORPUSCULAR HEMOGLOBIN 30.2 pg (27.0-33.0); MEAN CORPUSCULAR HGB CONC 32.9 g/dl (32.0-36.5); MEAN CORPUSCULAR VOLUME 91.8 fl (80.0-96.0); PLATELET COUNT, AUTOMATED 236 10^3/uL (150-450); RED BLOOD COUNT 4.01 10^6/uL (4.00-5.40); WHITE BLOOD COUNT 10.2 10^3/uL (4.0-10.0)
[2018-10-14] MEDS: CIPROFLOXACIN 500 MG TAB PO SCH ×2 (05:32→17:13)
[2018-10-14] MEDS: METOPROLOL TART 12.5 MG PER 1/2 TAB PO SCH ×4 (05:33→23:51)
[2018-10-14 05:52] LABS: BLOOD UREA NITROGEN 8 MG/DL (7-18); CALCIUM LEVEL 7.8 MG/DL (8.8-10.2); CARBON DIOXIDE LEVEL 29 MEQ/L (21-32); CHLORIDE LEVEL 108 MEQ/L (98-107); GLOMERULAR FILTRATION RATE > 60.0 (>32); GLUCOSE, FASTING 140 MG/DL (70-100); POTASSIUM SERUM 3.5 MEQ/L (3.5-5.1); SODIUM LEVEL 145 MEQ/L (136-145)
[2018-10-14] MEDS: HumaLOG INSULIN (NovoLOG) PER UNIT SC SCH ×4 (07:49→20:56)
[2018-10-14] MEDS ORDERED: FUROSEMIDE 40 MG/4 ML VIAL (J1940) IV ONE (10:00)
[2018-10-14] MEDS: NYSTATIN 100,000 UNITS/GM TOPICAL PWD 15 GM TOP PRN (10:16)
--- NOTE | 2018-10-14 10:39 | IPNPDOC ---
Date Seen The patient was seen on 10/14/18. Progress Note Vascular Surgery Dr Welsh. REASON FOR CONSULTATION: PE HPI: Patient is an 87-year-old female who was out with family eating lunch when shortly thereafter she developed the sudden onset of excruciating right-sided chest pain, worse with deep inspiration, associated shortness of breath. The patient does have some baseline dementia. CTA indicated extensive bilateral pulmonary emboli. Vascular surgery was consulted re PE. No acute medical complaints today. Denies any fevers, chills, weakness, fatigue, Headache, Chest Pain, Shortness of breath, cough, palpitations, abdominal pain, N/V/D or changes in bowel or bladder habits. PAST MEDICAL HISTORY: 1. Diastolic congestive heart failure. 2. Hypertension. 3. Type 2 diabetes 4. Breast cancer on palliative treatments only 5. Gastroesophageal reflux disease. 6. Dementia 7. Chronic constipation PAST SURGICAL HISTORY: 1. Left total knee replacement. 2. Glaucoma surgery bilaterally. 3. Left foot bunion and hammertoe corrective surgery 4. Colonoscopy. PE: GEN: 87yoF, appears stated age. Well-nourished, well developed. No acute distress. Alert and oriented x 3. HEENT: Normocephalic, atraumatic. Sclera are nonicteric. Conjunctiva without injection. Nose midline. No facial asymmetry. Moist mucous membranes. CHEST: Regular rate and rhythm, +S1, +S2 LUNGS: Clear to auscultation bilaterally. No wheezes, rales, or rhonchi. ABD: Round, soft, non-tender, non-distended. +Bowel sounds throughout. EXT: Pulses 2+ bilaterally dorsalis pedis and radial. No lower extremity edema appreciated. SKIN: [place], dry, warm. Capillary refill <2sec. No rashes. NEURO: Alert and oriented x 3. Cranial nerves III-XII are intact. No focal deficits appreciated. CTA chest 1. Extensive bilateral pulmonary emboli originating in the right and left main pulmonary arteries with mild bibasilar atelectasis. 2. Pulmonary vascular congestion and poor inspiratory effort limits evaluation. 3. 1.5 cm nodular mass in the right upper lobe with small satellite lesions. 4. Large heterogeneous right thyroid goiter greater than 6.8 cm maximal diameter with mass effect on the trachea and vascular structures of the thoracic inlet. Electronically Signed by Stas Miller MD 10/10/2018 04:17 P US LEs No evidence for deep venous thrombosis. Electronically Signed by Stas Miller MD 10/10/2018 06:00 P A&P: 1. Extensive bilateral pulmonary emboli Likely hypercoagulable secondary to her malignancy and possibly letrozole. TTE with RV strain S/P pulmonary thrombolysis as per Dr Welsh. Alteplase d/cd Saturday10/12/18. heparin gtt d/c 10/13/18 Continue Lovenox 80 mg SQ Q12. AAT/PT/OT. 2.Breast cancer: Followed by Estephanie Mackenzie MD in Oncology, patient elected for no further chemotherapy or aggressive treatments and site of her dementia. She is on letrozole as palliative therapy. DVT prophylaxis. SQ Lovenox as above. VS, I&O, 24H, Fishbone Vital Signs/I&O Vital Signs Date Time Temp Pulse Resp B/P (MAP) Pulse Ox O2 Delivery O2 Flow Rate FiO2 10/14/18 08:00 98.1 68 138/74 (95) 96 1.0 10/14/18 03:21 18 10/10/18 18:48 Nasal Cannula I&O- Last 24 Hours up to 6 AM 10/14/18 06:00 Intake Total 1301 ml Output Total 0 ml Balance 1301 ml Laboratory Data 24H LABS Laboratory Tests 2 10/13/18 11:46: Bedside Glucose (Misc Panel) 186H 10/13/18 17:11: Bedside Glucose (Misc Panel) 175H 10/13/18 19:49: Bedside Glucose (Misc Panel) 193H 10/14/18 05:19: Nucleated Red Blood Cells % (auto) 0.0, Anion Gap 8, Glomerular Filtration Rate > 60.0, Blood Urea Nitrogen 8, Creatinine 0.50L, Sodium Level 145, Potassium Level 3.5, Chloride Level 108H, Carbon Dioxide Level 29, Calcium Level 7.8L CBC/BMP Laboratory Tests 10/14/18 05:19 Red Blood Count 4.01, Mean Corpuscular Volume 91.8, Mean Corpuscular Hemoglobin 30.2, Mean Corpuscular Hemoglobin Concent 32.9, Red Cell Distribution Width 13.6, Calcium Level 7.8 L Microbiology Microbiology 10/10/18 Blood Culture - Preliminary, Resulted No Growth after 72 hours. All specime... 10/10/18 Blood Culture - Preliminary, Resulted No Growth after 72 hours. All specime... 10/10/18 Urine Culture - Final, Complete Escherichia Coli Aerococcus Urinae Leticia Ibrahim Oct 14, 2018 10:39
[2018-10-14] MEDS: ACETAMINOPHEN TAB 650MG DOSE (2X325MG) PO PRN (11:04)
[2018-10-14] MEDS ORDERED: DIGOXIN INJ 0.5 MG/2 ML AMP (J1160) IV ONE ×2 (13:15→16:30)
[2018-10-14] MEDS ORDERED: DIGOXIN INJ 0.5 MG/2 ML AMP (J1160) As Ordered ONE (13:18)
--- NOTE | 2018-10-14 14:27 | IPNPDOC ---
Text Note Date of Service The patient was seen on 10/14/18. NOTE Subjective: Ms. Hernandez is seen on bedside rounds this morning, she is laying in bed. She has no complaints except she feels fatigued. Denies any palpitation , Chest pain or SOb. She has been success fully weaned off oxygen this am . She has been noted to have several episodes of asymptomatic paroxysmal afib in the monitor with rates up to 160s and then spontaneously breaks in few minutes to 30 mins. PHYSICAL EXAMINATION: VITAL SIGNS: Please see below. GENERAL: Pleasant 87 y/o female sitting up in bed awake alert oriented speaking in complete sentences no acute distress HEENT: [Moist mucous membranes no JVD. CARDIOVASCULAR: S1 S2 regular no additional heart sounds appreciated RESPIRATORY: Clear to auscultation bilaterally, no rales, rhonchi or wheezing, no crackles ABDOMINAL: Bowel sounds present abdomen soft and nontender, no distension or rebound rigidity or guarding, no hepatosplenomegaly or masses appreciated EXTREMITIES: No clubbing cyanosis . There is bipedal edema NEURO: no focal neurodeficits appreciated PSYCHOLOGICAL: Appropriate affect LABORATORY DATA, MICROBIOLOGY: Please see below. ASSESSMENT AND PLAN: This is a 87 yo female admitted for b/l pulmonary emboli Extensive bilateral pulmonary emboli -She does have underlying malignancy and letrozole use , making her hypercoagulable -ECHO did demonstrate RV strain pattern and she received TPA, Dr Welsh of vascular sx on the case and his help is greatly appreciated -She should be anticoagulated with lovenox through out her life. Acute respiratory failure with Hypoxia due to PE Now resolved. Paroxysmal Afib with RVR Bp low in 90s to 100 so unable to give metoprolol will load with digoxin Already on lovenox. Breast cancer - Followed by emily Mackenzie in oncology - patient elected for no further chemotherapy or aggressive treatments -She is on letrozole as palliative therapy Diabetes -SSI, consistent carb diet Chronic constipation -Continue with her home bowel regimen Abnormal urinalysis she denies dysuria, frequency or other UTi symptoms. urine culture negative , asymtomatic bacteruria. will dc antibiotics. and > 100K CFU on culture Disposition: She will need to work with physical therapy. Needs better control of afib. VS,Fishbone, I+O VS, Fishbone, I+O Laboratory Tests 10/14/18 05:19 Red Blood Count 4.01, Mean Corpuscular Volume 91.8, Mean Corpuscular Hemoglobin 30.2, Mean Corpuscular Hemoglobin Concent 32.9, Red Cell Distribution Width 13.6, Calcium Level 7.8 L Vital Signs Date Time Temp Pulse Resp B/P (MAP) Pulse Ox O2 Delivery O2 Flow Rate FiO2 10/14/18 13:23 139 10/14/18 12:00 106/62 10/14/18 08:00 98.1 96 1.0 10/14/18 03:21 18 10/10/18 18:48 Nasal Cannula I&O- Last 24 Hours up to 6 AM 10/14/18 06:00 Intake Total 1301 ml Output Total 0 ml Balance 1301 ml AIDA FARNSWORTH MD Oct 14, 2018 14:27
[2018-10-14] MEDS: LETROZOLE 2.5 MG TAB PO SCH (17:13)
--- NOTE | 2018-10-14 20:39 | ECGEPIP ---
[facility] Test Date: 2018-10-14 Pat Name: PRISCILLA CANO Department: Room: [place] [address] Gender: Female Robot Programmer: KAYLEE : 1930 Requested By: FIDENCIO MCMAHON Order Number: [id number] Reading MD: Eddie Boudreaux Measurements Intervals [place] Rate: 70 P: 48 VA: 173 QRS: QRSD: 117 T: 224 QT: 442 QTc: 479 Interpretive Statements Normal sinus rhythm LA conduction disturbance? Extreme left axis deviation - left anterior hemiblock. Secondary poor precordial R-wave progression Diffuse ST/T-wave abnormalities Rhythm converted from atrial flutter 10/11/18 Electronically Signed on 10-14-2018 20:39:25 EDT by Eddie Boudreaux
--- NOTE | 2018-10-14 20:44 | ECGEPIP ---
[facility] Test Date: 2018-10-14 Pat Name: PRISCILLA CANO Department: Room: [place] [address] Gender: Female Fitness And Wellness Instructor: TYLER : 1930 Requested By: FIDENCIO MCMAHON Order Number: [id number] Reading MD: Eddie Boudreaux Measurements Intervals [place] Rate: 60 P: CT: -1 QRS: QRSD: 111 T: 233 QT: 443 QTc: 444 Interpretive Statements Considerable motion artifact Underlying sinus rhythm with blocked PACs Extreme left axis - left anterior hemiblock Secondary to poor precordial R-wave progression could not rule out prior anterior injury. ST/T-wave abnormalities more prominent than earlier the same day Clinical correlation advised Electronically Signed on 10-14-2018 20:44:49 EDT by Eddie Boudreaux
[2018-10-15] VITALS: BP 115/57
[2018-10-15] MEDS: CIPROFLOXACIN 500 MG TAB PO SCH (05:02)
[2018-10-15] MEDS: METOPROLOL TART 12.5 MG PER 1/2 TAB PO SCH ×3 (05:03→20:16)
[2018-10-15] MEDS: ENOXAPARIN 80 MG/0.8 ML SYRINGE (J1650) SC SCH ×2 (05:03→18:09)
[2018-10-15 05:28] LABS: HEMATOCRIT 39.6 % (36.0-47.0); HEMOGLOBIN 12.7 g/dl (12.0-15.5); MEAN CORPUSCULAR HEMOGLOBIN 29.5 pg (27.0-33.0); MEAN CORPUSCULAR HGB CONC 32.1 g/dl (32.0-36.5); MEAN CORPUSCULAR VOLUME 91.9 fl (80.0-96.0); PLATELET COUNT, AUTOMATED 266 10^3/uL (150-450); RED BLOOD COUNT 4.31 10^6/uL (4.00-5.40)
[2018-10-15 05:53] LABS: BLOOD UREA NITROGEN 12 MG/DL (7-18); CARBON DIOXIDE LEVEL 31 MEQ/L (21-32); CHLORIDE LEVEL 103 MEQ/L (98-107); CREATININE FOR GFR 0.66 MG/DL (0.55-1.30); GLOMERULAR FILTRATION RATE > 60.0 (>32); GLUCOSE, FASTING 132 MG/DL (70-100); POTASSIUM SERUM 3.3 MEQ/L (3.5-5.1); SODIUM LEVEL 143 MEQ/L (136-145)
[2018-10-15 07:11] LABS: MAGNESIUM LEVEL 1.8 MG/DL (1.8-2.4)
[2018-10-15 07:37] VITALS: BP 108/56
[2018-10-15] MEDS: HumaLOG INSULIN (NovoLOG) PER UNIT SC SCH ×4 (07:45→20:16)
[2018-10-15] MEDS: POTASSIUM CHLORIDE 10 MEQ SR TABLET PO SCH (08:25)
[2018-10-15] MEDS: NYSTATIN 100,000 UNITS/GM TOPICAL PWD 15 GM TOP PRN (08:25)
[2018-10-15] MEDS ORDERED: DIGOXIN 0.125 MG TAB PO SCH (09:00)
[2018-10-15] MEDS ORDERED: FUROSEMIDE 40 MG/4 ML VIAL (J1940) IV SCH (09:00)
[2018-10-15 11:40] VITALS: BP 117/58
--- NOTE | 2018-10-15 15:33 | IPNPDOC ---
Text Note Date of Service The patient was seen on 10/15/18. NOTE Subjective: Ms. Hernandez is seen on bedside rounds this morning, she is laying in bed. She has no complaints. No further episodes off Afib after 5 pm yesterday. PHYSICAL EXAMINATION: VITAL SIGNS: Please see below. GENERAL: Pleasant 87 y/o female sitting up in bed awake alert oriented speaking in complete sentences no acute distress HEENT: [Moist mucous membranes no JVD. CARDIOVASCULAR: S1 S2 regular no additional heart sounds appreciated RESPIRATORY: Clear to auscultation bilaterally, no rales, rhonchi or wheezing, no crackles ABDOMINAL: Bowel sounds present abdomen soft and nontender, no distension or rebound rigidity or guarding, no hepatosplenomegaly or masses appreciated EXTREMITIES: No clubbing cyanosis . There is bipedal edema NEURO: no focal neurodeficits appreciated PSYCHOLOGICAL: Appropriate affect LABORATORY DATA, MICROBIOLOGY: Please see below. ASSESSMENT AND PLAN: This is a 87 yo female admitted for b/l pulmonary emboli Extensive bilateral pulmonary emboli -She does have underlying malignancy and letrozole use , making her hypercoagulable -ECHO did demonstrate RV strain pattern and she received TPA, Dr Welsh of vascular sx on the case and his help is greatly appreciated -She should be anticoagulated with lovenox through out her life. Acute respiratory failure with Hypoxia due to PE Now resolved. Paroxysmal Afib with RVR loaded with digoxin yesterday. Bp better today will try to keep on Metoprol 12.5 bid. If she can tolerate that then will not give any digoxin. If she cannot then will continue her on digoxin. Breast cancer - Followed by emily Mackenzie in oncology - patient elected for no further chemotherapy or aggressive treatments -She is on letrozole as palliative therapy Diabetes -SSI, consistent carb diet Chronic constipation -Continue with her home bowel regimen Abnormal urinalysis she denies dysuria, frequency or other UTi symptoms. urine culture negative , asymtomatic bacteruria. E fecalis , and aerococcus are > 100K CFU on culture Dementia at baseline Disposition: She will need to work with physical therapy. Needs better control of afib. VS,Fishbone, I+O VS, Fishbone, I+O Laboratory Tests 10/15/18 05:04 Red Blood Count 4.31, Mean Corpuscular Volume 91.9, Mean Corpuscular Hemoglobin 29.5, Mean Corpuscular Hemoglobin Concent 32.1, Red Cell Distribution Width 13.6, Calcium Level 8.0 L Vital Signs Date Time Temp Pulse Resp B/P (MAP) Pulse Ox O2 Delivery O2 Flow Rate FiO2 10/15/18 11:40 97.4 74 22 117/58 (77) 95 10/15/18 04:00 1.0 10/10/18 18:48 Nasal Cannula I&O- Last 24 Hours up to 6 AM 10/15/18 05:59 Intake Total 890 ml Output Total 1000 ml Balance -110 ml AIDA FARNSWORTH MD Oct 15, 2018 15:33
[2018-10-15 16:29] VITALS: BP 125/65
[2018-10-15] MEDS: LETROZOLE 2.5 MG TAB PO SCH (18:08)
[2018-10-15 20:00] VITALS: BP 108/55
[2018-10-15] MEDS: CEFDINIR 300 MG CAP (OMNICEF) PO SCH (20:16)
[2018-10-16] VITALS: BP 125/59
[2018-10-16 04:00] VITALS: BP 142/63
[2018-10-16 04:38] LABS: HEMATOCRIT 36.8 % (36.0-47.0); HEMOGLOBIN 11.8 g/dl (12.0-15.5); MEAN CORPUSCULAR HEMOGLOBIN 29.1 pg (27.0-33.0); MEAN CORPUSCULAR HGB CONC 32.1 g/dl (32.0-36.5); MEAN CORPUSCULAR VOLUME 90.6 fl (80.0-96.0); PLATELET COUNT, AUTOMATED 275 10^3/uL (150-450); RED BLOOD COUNT 4.06 10^6/uL (4.00-5.40); WHITE BLOOD COUNT 8.9 10^3/uL (4.0-10.0)
[2018-10-16] MEDS: NYSTATIN 100,000 UNITS/GM TOPICAL PWD 15 GM TOP PRN (05:47)
[2018-10-16] MEDS: ENOXAPARIN 80 MG/0.8 ML SYRINGE (J1650) SC SCH (05:47)
[2018-10-16 06:57] LABS: BLOOD UREA NITROGEN 17 MG/DL (7-18); CALCIUM LEVEL 8.4 MG/DL (8.8-10.2); CARBON DIOXIDE LEVEL 30 MEQ/L (21-32); CHLORIDE LEVEL 104 MEQ/L (98-107); CREATININE FOR GFR 0.68 MG/DL (0.55-1.30); GLOMERULAR FILTRATION RATE > 60.0 (>32); GLUCOSE, FASTING 149 MG/DL (70-100); POTASSIUM SERUM 3.7 MEQ/L (3.5-5.1); SODIUM LEVEL 142 MEQ/L (136-145)
[2018-10-16 08:00] VITALS: BP 118/55
[2018-10-16 08:59] VITALS: BP 118/58
[2018-10-16] MEDS: METOPROLOL TART 12.5 MG PER 1/2 TAB PO SCH (08:59)
[2018-10-16] MEDS: HumaLOG INSULIN (NovoLOG) PER UNIT SC SCH ×2 (08:59→11:50)
[2018-10-16] MEDS: POTASSIUM CHLORIDE 10 MEQ SR TABLET PO SCH (09:00)
[2018-10-16] MEDS: CEFDINIR 300 MG CAP (OMNICEF) PO SCH (09:00)
[2018-10-16] MEDS ORDERED: DIGOXIN 0.125 MG TAB PO SCH (09:00)
[2018-10-16] MEDS ORDERED: CEFD300CAP PO (09:09)
[2018-10-16] MEDS ORDERED: METO1TAB87 PO (09:09)
[2018-10-16] MEDS ORDERED: LOVE0.6I2 SC (09:09)
--- NOTE | 2018-10-16 11:18 | DS.PDOC ---
Discharge Summary General Date of Admission October 10, 2018 at 16:58 Date of Discharge 10/16/18 Discharge Summary PROCEDURES PERFORMED DURING STAY: local TPA DISCHARGE DIAGNOSES: Bilateral pulmonary embolism COMPLICATIONS/CHIEF COMPLAINT: Pulmonary Embolism. HISTORY OF PRESENT ILLNESS: please see history and physical HOSPITAL COURSE: This is a 87 yo female admitted for b/l pulmonary emboli Extensive bilateral pulmonary emboli -She does have underlying malignancy and letrozole use , making her hyper coagulable -ECHO did demonstrate RV strain pattern and she received TPA, Dr Welsh of vascular sx on the case and his help is greatly appreciated -She should be anticoagulated with lovenox through out her life. Acute respiratory failure with Hypoxia due to PE Now resolved. Paroxysmal Afib with RVR loaded with digoxin initially then went back to sinus rhythm on 10/14/18 with improved BPS. So digoxin stopped. will keep on Metoprol 12.5 bid. Breast cancer - Followed by emily Mackenzie in oncology - patient elected for no further chemotherapy or aggressive treatments -She is on letrozole as palliative therapy Diabetes -SSI, consistent carb diet Chronic constipation -Continue with her home bowel regimen Abnormal urinalysis she denies dysuria, frequency or other UTi symptoms. urine culture negative , asymtomatic bacteruria. E fecalis , and aerococcus are > 100K CFU on culture will finish course of antibiotics. Dementia at baseline DISCHARGE MEDICATIONS: Please see below. ALLERGIES: Please see below. PHYSICAL EXAMINATION ON DISCHARGE: VITAL SIGNS: Please see below. GENERAL: Pleasant 87 y/o female sitting up in bed awake alert oriented speaking in complete sentences no acute distress HEENT: [Moist mucous membranes no JVD. CARDIOVASCULAR: S1 S2 regular no additional heart sounds appreciated RESPIRATORY: Clear to auscultation bilaterally, no rales, rhonchi or wheezing, no crackles ABDOMINAL: Bowel sounds present abdomen soft and nontender, no distension or rebound rigidity or guarding, no hepatosplenomegaly or masses appreciated EXTREMITIES: No clubbing cyanosis . There is bipedal edema NEURO: no focal neurodeficits appreciated PSYCHOLOGICAL: Appropriate affect LABORATORY DATA: Please see below. ACTIVITY: [As tolerated]. DIET: As tolerated DISCHARGE PLAN: STR at [facility] DISCHARGE INSTRUCTIONS: Pmd in [address] Mackenzie in [address] Welsh in 1 month DISCHARGE CONDITION: [Stable]. TIME SPENT ON DISCHARGE: 40 minutes. Vital Signs/I&Os Vital Signs Date Time Temp Pulse Resp B/P (MAP) Pulse Ox O2 Delivery O2 Flow Rate FiO2 10/16/18 09:00 84 10/16/18 08:59 118/58 10/16/18 08:00 97.1 18 91 10/15/18 04:00 1.0 10/10/18 18:48 Nasal Cannula I&O- Last 24 Hours up to 6 AM 10/16/18 06:00 Intake Total 900 ml Output Total 200 ml Balance 700 ml Laboratory Data Labs 24H Laboratory Tests 2 10/15/18 11:30: Bedside Glucose (Misc Panel) 239H 10/15/18 16:27: Bedside Glucose (Misc Panel) 184H 10/15/18 20:15: Bedside Glucose (Misc Panel) 197H 10/16/18 03:59: Anion Gap 8, Glomerular Filtration Rate > 60.0, Blood Urea Nitrogen 17, Creati nine 0.68, Sodium Level 142, Potassium Level 3.7, Chloride Level 104, Carbon Dioxide Level 30, Calcium Level 8.4L 10/16/18 04:01: Nucleated Red Blood Cells % (auto) 0.0 10/16/18 07:35: Bedside Glucose (Misc Panel) 158H CBC/BMP Laboratory Tests 10/16/18 03:59 Calcium Level 8.4 L 10/16/18 04:01 Red Blood Count 4.06, Mean Corpuscular Volume 90.6, Mean Corpuscular Hemoglobin 29.1, Mean Corpuscular Hemoglobin Concent 32.1, Red Cell Distribution Width 13.8 FSBS Laboratory Tests Test 10/15/18 11:30 10/15/18 16:27 10/15/18 20:15 10/16/18 07:35 Range/Units Bedside Glucose (Misc Panel) 239 184 197 158 83-110 MG/DL Microbiology Microbiology 10/10/18 Blood Culture - Final, Complete NO GROWTH AFTER 5 DAYS 10/10/18 Blood Culture - Final, Complete NO GROWTH AFTER 5 DAYS 10/10/18 Urine Culture - Final, Complete Escherichia Coli Aerococcus Urinae Discharge Medications Scheduled Cefdinir (Cefdinir) 300 Mg Capsule, 300 MG PO BID Dulaglutide (Trulicity) 0.75 Mg/0.5 Ml Inj, 0.75 MG SC Q7D, (Reported) SUNDAYS AT 1800 Enoxaparin Sodium (Lovenox) 80 Mg/0.8 Ml Syringe, 80 MG SC Q12H Letrozole (Letrozole) 2.5 Mg Tab, 2.5 MG PO QPM, (Reported) AT 1700 Metformin HCl (Metformin HCl) 1,000 Mg Tablet, 1,000 MG PO BID, (Reported) Metoprolol Tartrate (Metoprolol Tartrate) 25 Mg Tablet, 12.5 MG PO BID Nystatin (Nystatin Powder) 15 Gm Powder, 1 APLCT TOP BID, (Reported) Scheduled PRN Acetaminophen (Acetaminophen) 325 Mg Tab, 650 MG PO Q4H PRN for PAIN, (Reported) Milk Of Magnesia (Milk of Magnesia) 2,400 Mg/10 Ml Oral.susp, 10 ML PO DAILY PRN for CONSTIPATION, (Reported) Ondansetron (Ondansetron Odt) 4 Mg Tab.rapdis, 4 MG PO Q6H PRN for NAUSEA, (Reported) Allergies Coded Allergies: Penicillins (Verified Allergy, Intermediate, Rash, 09/01/18) AIDA FARNSWORTH MD Oct 16, 2018 11:18
--- NOTE | 2018-11-19 15:20 | REPIR ---
DATE OF PROCEDURE: 10/10/2018 PREOPERATIVE DIAGNOSES: Pulmonary embolus, deep venous thrombosis (DVT). POSTOPERATIVE DIAGNOSES: Pulmonary embolus, deep venous thrombosis (DVT). PROCEDURE: Ultrasound-guided right basilic vein cannulation, right basilic vein 40 cm peripherally inserted central catheter (PICC) line placement. SURGEON: Dr. Alexandra Welsh. GROUP SOCIAL WORKER: None. ANESTHESIA: Local ESTIMATED BLOOD LOSS: Minimal. IV FLUIDS: None. COMPLICATION: None DRAINS: None. SPECIMEN: None. IMPLANT: INDICATION: The patient is an 87-year-old female with a pulmonary embolus and DVT who requires thrombolysis for right heart failure. The patient will undergo placement of a line with infusion of tPA. Risks, benefits and alternative options were discussed with the patient. DESCRIPTION OF PROCEDURE: The patient was taken to the angiography suite, placed supine on the angiography room table and the right upper extremity was prepped and draped in a standard surgical fashion. The right basilic vein was cannulated and a PICC line was cut to length of 40 cm and placed with the tip in the superior vena cava right atrial junction, tPA was administered through the PICC line with 20 mg of tPA. The PICC line was then used for infusion of tPA for the pulmonary thrombolysis. Dressings were applied. The patient tolerated the procedure well. All instrument, sponge and needle counts were correct at the end the case. There were no complications. Dr. Welsh was present for and directed the entire case. The patient was transferred to the intensive care unit (ICU) for pulmonary thrombolysis.
== END 2018-10-16 12:45 | disposition home or self-care (01) | DRG 166 ==
LOC: M ED 13:17 → M ED INP 16:58 → M ICU 20:36
PROVIDERS: ADMIT Internal Medicine; ATTEND Internal Medicine Nephrology
PROC: 06H03DZ Insertion of Intraluminal Device into Inferior Vena Cava, Percutaneous Approach (ICD-10-PCS; principal; 2018-10-10 18:29)
DX: I26.99 Other pulmonary embolism without acute cor pulmonale (principal); J96.01 Acute respiratory failure with hypoxia; I50.32 Chronic diastolic (congestive) heart failure; C50.211 Malignant neoplasm of upper-inner quadrant of right female breast; I48.0 Paroxysmal atrial fibrillation; K59.00 Constipation, unspecified; F03.90 Unspecified dementia, unspecified severity, without behavioral disturbance, psychotic disturbance, mood disturbance, and anxiety; E11.9 Type 2 diabetes mellitus without complications; Z79.899 Other long term (current) drug therapy; Z88.0 Allergy status to penicillin; I11.0 Hypertensive heart disease with heart failure; K21.9 Gastro-esophageal reflux disease without esophagitis; Z96.652 Presence of left artificial knee joint; D72.829 Elevated white blood cell count, unspecified

== ENCOUNTER → 2018-10-21 | Outpatient (REF) ==
[~2018-10-21] MED LIST changes: +CEFD300CAP PO; +LOVE0.6I2 SC; +METF10004 PO; +METO1TAB87 PO; +MOM30SS PO
[2018-10-21 09:45] LABS: HEMATOCRIT 44.1 % (36.0-47.0); HEMOGLOBIN 14.5 g/dl (12.0-15.5); MEAN CORPUSCULAR HEMOGLOBIN 29.3 pg (27.0-33.0); MEAN CORPUSCULAR HGB CONC 32.9 g/dl (32.0-36.5); MEAN CORPUSCULAR VOLUME 89.1 fl (80.0-96.0); PLATELET COUNT, AUTOMATED 346 10^3/uL (150-450); RED BLOOD COUNT 4.95 10^6/uL (4.00-5.40); WHITE BLOOD COUNT 10.6 10^3/uL (4.0-10.0)
[2018-10-21 10:20] LABS: BLOOD UREA NITROGEN 9 MG/DL (7-18); CALCIUM LEVEL 8.8 MG/DL (8.8-10.2); CARBON DIOXIDE LEVEL 23 MEQ/L (21-32); CHLORIDE LEVEL 104 MEQ/L (98-107); CREATININE FOR GFR 0.66 MG/DL (0.55-1.30); GLOMERULAR FILTRATION RATE > 60.0 (>32); GLUCOSE, FASTING 139 MG/DL (70-100); POTASSIUM SERUM 3.8 MEQ/L (3.5-5.1); SODIUM LEVEL 140 MEQ/L (136-145)
== END ==
PROVIDERS: ATTEND Family Medicine
DX: E11.9 Type 2 diabetes mellitus without complications (principal)

== ENCOUNTER 2018-11-11 14:39 | Outpatient (RCR) | payer MEDICARE ==
[2018-03-26 13:48] VITALS: BP 118/81
--- NOTE | 2018-03-27 09:41 | MEDONC ---
MEDICAL ONCOLOGY FOLLOWUP VISIT DATE OF SERVICE: 03/26/2018 Shilpa is seen today by Olamide Hayden NP with Dr. Estephanie Mackenzie the supervising physician. DIAGNOSIS: Right breast clinical stage II, T3N0, ER positive, IL positive, HER2/nasreen negative invasive ductal carcinoma involving a large 6.7 cm medial right breast mass biopsied on November 08, 2017 following the patient noticing a lump in her breast. 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 CURRENT TREATMENT: letrozole 2.5 mg by mouth daily started around the time of the patient's initial consultation with Dr. Mackenzie on 01/02/2018. INTERVAL HISTORY: Shilpa presents today for a scheduled 3-month followup visit accompanied by her daughter. As documented in Dr. Mackenzie initial visit note, Shilpa is an 87-year-old female who lives in [facility]. Unfortunately she also carries a diagnosis of dementia. Her past medical history is also significant for type 2 diabetes, vitamin D deficiency, obesity, and hypertension. At the patient's initial visit, ongoing management options were discussed which typically would include lumpectomy versus mastectomy followed by radiation, if appropriate, followed by systemic treatment. In the case of a luminal A breast cancer, endocrine therapy only. In addition, bone supporting agents are added if there is osteopenia or osteoporosis. Based on the patient's frailty and dementia and the size of her tumor we felt that it made surgery suboptimal. She was therefore amendable to starting letrozole and obtaining a current bone densitometry as a baseline followed by reevaluation with us every 3 months. As previously documented, typically, neoadjuvant endocrine therapy works slowly and we would anticipate at least 3-6 months of treatment before reconsidering surgery, preceded by imaging. Should Shilpa ultimately elect for no surgery, her treatment would not be curative, but could potentially be controlled with a good quality of life again given her overall complex of comorbidities. Since we saw Shilpa last she reports no major interval events. Reportedly is tolerating the letrozole well. Specifically denies worsening systemic arthralgias or hot flashes. She does not do self-breast exam and is unable to tell me if she feels that there is any change in the size of her right breast mass. At present Shilpa specifically denies complaints of new headaches, blurred vision, dyspnea, persistent cough, diminished appetite, new lumps or bumps, unintended weight loss, nausea, vomiting, diarrhea or constipation, new skeletal pain or extremity edema. PHYSICAL EXAMINATION: Weight is 94 kg, temperature 97.9, pulse 92, respirations 18, BP 118/81, O2 sat 93% at rest on room air. GENERAL EXAM: Reveals a beverly older white female clinically stable in no acute distress. HEENT: Is positive for noted poor dentition, otherwise unremarkable. CARDIAC: S1-S2, regular rate and rhythm. No murmur or gallops. RESPIRATORY: Lungs clear bilaterally to auscultation and percussion. No rales, rhonchi, or wheezing. BREAST EXAM: Large pendulous breasts bilaterally. At this time I cannot visually identify any obvious mass in the patient's upper inner quadrant of the right breast. Upon exam I do not feel any discrete mass at all today. This was noted previously by Dr. Mackenzie on exam 01/02/2018. No obvious right axillary adenopathy today. Left breast without dominant palpable mass or left axillary adenopathy. ABDOMEN: Soft, nontender, bowel sounds normal, no tenderness, guarding or rebound, no palpable masses or hepatosplenomegaly. EXTREMITIES: No edema, clubbing, or cyanosis. No thigh or calf tenderness. Normal range of motion. LABORATORY DATA: None from today. IMPRESSION: Shilpa Hernandez is a beverly 87-year-old female somewhat frail secondary to age and other comorbidities who has been on letrozole now for approximately 3 months, tolerating it well with a significant reduction in the previous palpated right inner quadrant breast mass. On exam today I am unable to palpate a mass. At this time, we once again discussed ongoing recommendations which would include three additional months of neoadjuvant endocrine therapy with letrozole. We would advise initiating calcium 500 mg plus D twice a day. Shilpa did have a current bone densitometry at [facility] in December and we have called for the report, but as of this dictation do not have that back. We will also obtain a current diagnostic right breast mammogram and ultrasound for comparison and also to assist us in further decision making. We will tentatively plan to see Shilpa back for reevaluation in 3 months or certainly sooner if any new symptoms, questions or problems. Reviewed by Olamide Hayden NP 03/28/2018 07:47 A Electronically Signed by Estephanie Mackenzie MD 03/28/2018 05:50 P DD: Olamide Hayden NP 03/26/2018 03:50 P DT: mary 03/27/2018 09:23 A CC: MD Rodrigo Schmitt MD
[2018-07-01 09:56] VITALS: BP 139/82
--- NOTE | 2018-07-02 19:21 | MEDONC ---
MEDICAL ONCOLOGY FOLLOWUP DATE OF SERVICE: 07/01/2018 DIAGNOSIS Right breast clinical Stage II, T3N0, ER positive, NH positive, HER2 negative invasive ductal carcinoma diagnosed October 2017 involving a 6.7 cm medial right breast mass self detected in an 87-year-old woman with dementia on palliative therapy with single agent letrozole. Per the patient and her daughter's wishes surgery not being sought in preference for symptom and tumor control on antiestrogen pill. CURRENT THERAPY Letrozole 2.5 mg daily begun 12/2017. INTERVAL HISTORY Shilpa is here accompanied by her daughter. She was seen last in March with Olamide. Restaging mammogram and ultrasound show response with right breast mass now measuring 3.7 cm down from 6.7 in craniocaudal dimension, and 4.6 down from 6.3 in AP dimension. On ultrasound, mass now measures 3.2 x 2.1 x 3.5 cm, previously 5.5 x 4.8 x 5.4 cm. Shilpa had a fall since seeing me last. She has got a few broken teeth in the right upper jaw. Denies knowledge of any infected teeth or need for tooth extractions. According to her daughter invasive procedures are being minimized. The patient herself is pleased with the response to letrozole. Denies any problems from the medicine. No muscle aches or back aches. REVIEW OF SYSTEMS: Mostly involving the daughter, negative for sweats, hot flashes, joint aches, shortness of breath, cough, visual disturbance. Remainder of 12 system review negative aside from pertinent positives and negatives above. PHYSICAL EXAMINATION Temperature 97.4, blood pressure 139/82, heart rate 93, respiratory 20, O2 sat 92% consistent with the patient's prior. Patient is a overweight older woman somewhat unkempt, very friendly. Good eye contact, smiling. Respiratory: Clear lungs to auscultation bilaterally anteriorly and posteriorly. Cardiac: S1, S2 regular rate and rhythm. 1/6 systolic murmur. Abdomen: Soft, nontender, nondistended, no hepatosplenomegaly or mass. Extremities: No edema. Musculoskeletal: No vertebral tenderness to percussion bilaterally. Lymph nodes: No submandibular, cervical, supraclavicular or axillary adenopathy bilaterally. Breast examination: Symmetric in the right breast. Approximately 2 o'clock there is a palpable irregular mobile mass approximately 3 cm. No other dominant mass in the right breast. No right axillary adenopathy. No suspicious skin changes or nipple areolar distortion. Left breast with no dominant palpable mass. No nipple areolar distortion, skin changes and no left axillary adenopathy. LABORATORY DATA None today. IMPRESSION 87-year-old woman with clinical Stage II 6 cm right breast mass now approximately 50% reduced in size on single agent letrozole as palliative treatment in the setting of dementia and patient and daughters expressed wish for minimal treatment needed to control cancer. Palbociclib not recommended up front due to patient being in a intermediate, the need for lab checks and so forth. She is tolerating letrozole extremely well. Excellent response to treatment on exam and by imaging. Bone density testing shows right femur neck osteoporosis negative 2.7 T-score. Remainder of scores normal or mild osteopenia. I discussed bone modifying agents to protect against further bone loss while on letrozole. The risk is of osteonecrosis, possible hypocalcemia and back ache with Prolia (denosumab). The benefit would be to decrease the risk of osteoporotic fracture. Shilpa has tooth fracture related to a fall but not a history of poor dentition needing extraction. After extensive discussion of risks and benefits with Shilpa and her daughter, we together decided she would potentially start on Prolia (denosumab 60 mg) subcu every 6 months beginning with her next office visit here to avoid an extra visit. This would require lab check for creatinine and calcium and I would also like to check CBC and CMP at that time to which the patient and her daughter agreed. PLAN 1. 3-month interval return with CBC, (stat CMP), Prolia. 2. Continue letrozole 2.5 mg daily. Electronically Signed by Estephanie Mackenzie MD 07/03/2018 04:22 P DD: Estephanie Mackenzie MD 07/01/2018 03:54 P DT: jw 07/02/2018 06:40 P CC: Rodrigo Freitas MD
[2018-10-10 10:40] LABS: HEMATOCRIT 48.9 % (36.0-47.0); LYMPH % 13.9 % (24.0-44.0); MEAN CORPUSCULAR HGB CONC 32.7 g/dl (32.0-36.5); MEAN CORPUSCULAR VOLUME 91.6 fl (80.0-96.0); NEUTROPHILS # 13.2 10^3/uL (1.8-7.7); NEUTROPHILS % 79.7 % (36.0-66.0); RED BLOOD COUNT 5.34 10^6/uL (4.00-5.40); WHITE BLOOD COUNT 16.6 10^3/uL (4.0-10.0)
[2018-10-10 11:09] LABS: BLOOD UREA NITROGEN 20 MG/DL (6-20); CALCIUM LEVEL 9.7 MG/DL (8.5-10.2); CARBON DIOXIDE LEVEL 28 MEQ/L (23-31); CHLORIDE LEVEL 94 MMOL/L (98-107); CREATININE FOR GFR 0.91 MG/DL (0.60-1.10); GLOMERULAR FILTRATION RATE > 60.0 (>32); GLUCOSE, FASTING 222 MG/DL (70-105); POTASSIUM SERUM 3.2 MMOL/L (3.5-5.1); TOTAL PROTEIN 6.7 GM/DL (6.4-8.3)
[2018-10-10 11:13] VITALS: BP 121/81
[2018-10-10 11:14] LABS: SODIUM LEVEL 131 MMOL/L (135-145)
--- NOTE | 2018-10-12 10:57 | MEDONC ---
MEDICAL ONCOLOGY FOLLOWUP NOTE. 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 Per the patient and the patient's daughter wishes, surgery not being sought in preference for symptom and tumor control on antiestrogen pill. CURRENT THERAPY: letrozole 2.5 mg p.o. daily begun 12/2017. INTERVAL HISTORY: Shilpa is here accompanied by her daughter. Since we saw Shilpa last, her daughter reports an approximate 2-week history of progressive general malaise, diminished appetite, nausea but no vomiting, urinary incontinence following removal of a pessary recently and an approximate 14-pound weight loss since June. At present, Shilpa specifically denies complaints of headache or visual disturbance, dyspnea, cough, fevers or chills, diarrhea, constipation, new skeletal pain or extremity edema. PHYSICAL EXAMINATION: Weight is 84.2 kg, temperature 97.3, pulse 89, respirations 18, BP 121/81, O2 sat 89% at rest on room air. General: Exam reveals an elderly, overweight woman, somewhat unkempt, very friendly resting comfortably in her wheelchair. Cardiac is S1, S2, regular rate and rhythm. 1/6 systolic murmur. RESPIRATORY: Lungs clear bilaterally to auscultation and percussion. No rales, rhonchi, or wheezing. ABDOMEN: Soft, nontender. Bowel sounds normal. No tenderness, guarding, or rebound. No palpable masses or hepatosplenomegaly. MUSCULOSKELETAL: No focal skeletal tenderness to percussion. No joint swelling, warmth, tenderness, or erythema. EXTREMITIES: Positive for trace pretibial edema bilaterally. LABORATORY DATA: WBC 16.6, ANC 13.2, RBC 5.34, H H 16, 48.9, platelets 269. Chemistries: Sodium 131, potassium 3.2, nonfasting glucose 222, total bilirubin 2.2, all other findings within normal parameters. IMPRESSION: Shilpa presents today for a follow-up visit and for denosumab. Based on her current symptoms and abnormal laboratory findings, we are going to hold giving her denosumab today. We discussed at length whether or not Shilpa should be taken to the emergency room for further evaluation or wait until her scheduled followup with Dr. Freitas on 10/13/2018. Shilpa's daughter ultimately decided that she would tentatively plan to wait until her scheduled followup with Dr. Freitas on Saturday for further evaluation of Shilpa's current symptoms and laboratory findings. I did advise her however, should Shilpa decline over the weekend, developed cough, fevers or chills, pain or any other new symptoms, that she should go directly to the emergency room. She will continue with letrozole 2.5 mg daily. We will plan to see Shilpa back per the daughter's request in 1 month for a follow-up visit with a CBC, stat CMP and denosumab. Electronically Signed by Olamide Hayden NP 10/13/2018 06:51 A DD: Olamide Hayden NP 10/10/2018 01:24 P DT: prasanna 10/12/2018 10:48 A CC: Rodrigo Freitas MD
[~2018-11-11] VITALS: Ht 152.4 cm; Wt 79.6 kg
[~2018-11-11 14:39] MED LIST changes: +DENOSUMAB 60MG/1ML SYRINGE (PROLIA) (J0897 PER 1MG) (FOR ONCOLOGY) SC ONE
[2018-11-11 14:47] VITALS: BP 138/79
[2018-11-11 15:03] LABS: HEMATOCRIT 46.6 % (36.0-47.0); HEMOGLOBIN 15.2 g/dl (12.0-15.5); LYMPH % 19.5 % (24.0-44.0); MEAN CORPUSCULAR HEMOGLOBIN 29.8 pg (27.0-33.0); MEAN CORPUSCULAR HGB CONC 32.6 g/dl (32.0-36.5); MEAN CORPUSCULAR VOLUME 91.4 fl (80.0-96.0); NEUTROPHILS # 8.8 10^3/uL (1.8-7.7); NEUTROPHILS % 73.6 % (36.0-66.0); RED BLOOD COUNT 5.1 10^6/uL (4.00-5.40); WHITE BLOOD COUNT 11.9 10^3/uL (4.0-10.0)
[2018-11-11 15:17] LABS: ALBUMIN 4.3 GM/DL (3.5-5.2); BLOOD UREA NITROGEN 25 MG/DL (6-20); CARBON DIOXIDE LEVEL 26 MEQ/L (23-31); CHLORIDE LEVEL 102 MMOL/L (98-107); CREATININE FOR GFR 0.89 MG/DL (0.60-1.10); GLOMERULAR FILTRATION RATE > 60.0 (>32); GLUCOSE, FASTING 182 MG/DL (70-105); SODIUM LEVEL 140 MMOL/L (135-145); TOTAL PROTEIN 7.2 GM/DL (6.4-8.3)
--- NOTE | 2018-11-12 10:56 | MEDONC ---
MEDICAL ONCOLOGY FOLLOWUP: DATE OF SERVICE: 11/11/2018. DIAGNOSIS: Right breast clinical stage II, T3, N0, M0, ER positive, VT positive, HER2/nasreen negative IDC being medically managed in a frail elderly patient now living in custodial facility. At diagnosis October 2017, 6.7 cm medial right breast mass. Biopsy 11/08/2017 with invasive ductal carcinoma with cribriform features, ER / VT strongly positive, HER2/nasreen negative on single agent letrozole with major clinical response, radiographic and sonographically response. Near 50% reduction in mass as of March 2018. CURRENT THERAPY: Letrozole 2.5 mg p.o. daily begun December 2017. INTERVAL HISTORY: Shilpa is here accompanied by her son. She is sitting in a wheelchair and has had a major events in the last 2 months. In fact the day of her last visit here, 10/10/2018, she was taken to the emergency room with sudden onset chest pain and found to have a major pulmonary thrombus. Underwent tPA treatment with IVC filter placement. She recovered from this but has since transitioned from assisted living to custodial facility. She is on enoxaparin 80 mg subcu b.i.d. Shilpa greeted me with a big smile, very pleasant and immediately says she wants to show me her right breast and feels that it is much better. She denies any current pain, sweats or chills. PHYSICAL EXAMINATION: Weight 79 kg, temperature 97.9, blood pressure 138/79, heart rate 102, respiratory 20, O2 sat 95%. Patient is a pleasant overweight older woman with poor dentition. Seated in a wheelchair. RESPIRATORY: Clear lungs throughout the lung christopher. No wheezes, rales or rhonchi. CARDIAC: S1, S2. Occasional ectopy. No murmur nor gallop. ABDOMEN: Soft, nontender, nondistended. EXTREMITIES: Trace pedal edema bilaterally. BREAST EXAM: Symmetric pendulous breasts without suspicious nodularity, dimpling or visible asymmetry. In the inframammary sites bilaterally, there is coalesced erythematous and scaling rash with powder. No palpable right breast dominant mass. No right axillary adenopathy. No right supraclavicular adenopathy. No left breast palpable dominant mass. No left axillary or supraclavicular adenopathy. LABORATORY DATA: WBC 11.9, hemoglobin 15, hematocrit 46, platelets 233. Differential unremarkable. Electrolytes normal. Liver functions normal. GFR normal. Glucose 182. IMPRESSION: 1. Clinical stage II,T3, N0, M0 ER/VT strongly positive, HER2/nasreen negative right breast invasive ductal carcinoma involving a large, nearly 7 cm medial right breast mass at time of diagnosis October 2017. On single agent letrozole, now for 1 year with near complete clinical response. No palpable mass on today's exam. Normal appearing right breast with just some 6-o'clock position tinea, which is symmetric and bilateral. Interval restaging mammogram and ultrasound in March showed 50% reduction size of mass. Patient is tolerating letrozole well. 2. Recent thromboembolic event not likely related to letrozole on enoxaparin and status post IVC. 3. Transition to custodial facility, limited mobility. 4. Mild leukocytosis, uncertain etiology. Patient is clinically asymptomatic today. PLAN: 1. Continue letrozole daily. 2. 3-month interval return for clinical exam. 3. I am not ordering labs with that clinical visit due to the frequency with which they seem to be drawn in other [facility] venues. Electronically Signed by Estephanie Mackenzie MD 11/14/2018 07:07 P DD: Estephanie Mackenzie MD 11/11/2018 04:27 P DT: edwin 11/12/2018 10:46 A CC: MD Rodrigo Schmitt MD
== END 2018-11-11 16:06 | disposition home or self-care (01) ==
LOC: M ONCM 14:39
PROVIDERS: ATTEND Internal Medicine Medical Oncology
DX: C50.911 Malignant neoplasm of unspecified site of right female breast (principal); D72.829 Elevated white blood cell count, unspecified; E55.9 Vitamin D deficiency, unspecified; I10 Essential (primary) hypertension; E66.9 Obesity, unspecified; Z79.899 Other long term (current) drug therapy; Z86.711 Personal history of pulmonary embolism; Z95.828 Presence of other vascular implants and grafts
CPT/HCPCS: 36415; 80053; 85027; G0463

== ENCOUNTER → 2018-11-12 | Outpatient (REF) ==
[~2018-11-12] MED LIST changes: -DENOSUMAB 60MG/1ML SYRINGE (PROLIA) (J0897 PER 1MG) (FOR ONCOLOGY) SC ONE
[2018-11-12 09:31] LABS: HEMATOCRIT 44.2 % (36.0-47.0); HEMOGLOBIN 14.7 g/dl (12.0-15.5); MEAN CORPUSCULAR HEMOGLOBIN 29.3 pg (27.0-33.0); MEAN CORPUSCULAR HGB CONC 33.3 g/dl (32.0-36.5); MEAN CORPUSCULAR VOLUME 88.2 fl (80.0-96.0); PLATELET COUNT, AUTOMATED 238 10^3/uL (150-450); RED BLOOD COUNT 5.01 10^6/uL (4.00-5.40); WHITE BLOOD COUNT 10.3 10^3/uL (4.0-10.0)
[2018-11-12 09:44] LABS: BLOOD UREA NITROGEN 22 MG/DL (7-18); CARBON DIOXIDE LEVEL 23 MEQ/L (21-32); CHLORIDE LEVEL 104 MEQ/L (98-107); CREATININE FOR GFR 0.67 MG/DL (0.55-1.30); GLOMERULAR FILTRATION RATE > 60.0 (>32); GLUCOSE, FASTING 165 MG/DL (70-100); POTASSIUM SERUM 3.8 MEQ/L (3.5-5.1); SODIUM LEVEL 138 MEQ/L (136-145)
[2018-11-12 09:45] LABS: CALCIUM LEVEL 9.5 MG/DL (8.8-10.2)
== END ==
PROVIDERS: ATTEND Family Medicine
DX: E11.9 Type 2 diabetes mellitus without complications (principal)

== ENCOUNTER 2018-12-17 14:04 | Inpatient (IN) | payer MEDICARE ==
[~2018-12-17] VITALS: Ht 167.6 cm; Wt 74.4 kg
[~2018-12-17 14:04] MED LIST changes: -BISA10SU4 PR; -ENEMENE PR; -GLUC0.8I INJ; -PROC5TA PO
[2018-12-17] MEDS ORDERED: LOVE0.6I2 SC (14:32)
[2018-12-17] MEDS ORDERED: METO1TAB87 PO (14:32)
[2018-12-17] MEDS ORDERED: GLUC0.8I INJ (14:32)
[2018-12-17] MEDS ORDERED: PROC5TA PO (14:32)
[2018-12-17] MEDS ORDERED: ENEMENE PR (14:32)
[2018-12-17] MEDS ORDERED: BISA10SU4 PR (14:33)
[2018-12-17 14:48] LABS: BASO # 0.1 10^3/uL (0.0-0.2); BASO % 0.4 % (0.0-1.0); HEMATOCRIT 46.2 % (36.0-47.0); LYMPH # 1.6 10^3/uL (1.5-4.5); LYMPH % 7.4 % (24.0-44.0); MEAN CORPUSCULAR HEMOGLOBIN 29.7 pg (27.0-33.0); MEAN CORPUSCULAR HGB CONC 32.5 g/dl (32.0-36.5); MEAN CORPUSCULAR VOLUME 91.5 fl (80.0-96.0); MONO % 9.3 % (0.0-5.0); NEUTROPHILS # 17.5 10^3/uL (1.8-7.7); NEUTROPHILS % 82.1 % (36.0-66.0); PLATELET COUNT, AUTOMATED 339 10^3/uL (150-450); RED BLOOD COUNT 5.05 10^6/uL (4.00-5.40); WHITE BLOOD COUNT 21.4 10^3/uL (4.0-10.0)
[2018-12-17 14:57] LABS: INR 1.35; PROTHROMBIN TIME 16.4 SECONDS (11.8-14.0)
[2018-12-17 15:09] LABS: ALBUMIN 2.9 GM/DL (3.2-5.2); ALT/SGPT 35 U/L (12-78); BILIRUBIN,TOTAL 1.3 MG/DL (0.2-1.0); BLOOD UREA NITROGEN 30 MG/DL (7-18); CALCIUM LEVEL 9.9 MG/DL (8.8-10.2); CARBON DIOXIDE LEVEL 25 MEQ/L (21-32); CHLORIDE LEVEL 99 MEQ/L (98-107); CK-MB VALUE MASS < 1.0 NG/ML (<3.6); CPK CREATINE PHOSPHOKINASE 29 U/L (26-192); GLOMERULAR FILTRATION RATE > 60.0 (>32); GLUCOSE, FASTING 220 MG/DL (70-100); LIPASE 46 U/L (73-393); MB/CK RELATIVE INDEX 3.45 (< OR =4); POTASSIUM SERUM 3.5 MEQ/L (3.5-5.1); SODIUM LEVEL 135 MEQ/L (136-145); TOTAL PROTEIN 7.3 GM/DL (6.4-8.2); TROPONIN I < 0.02 NG/ML (< 0.10)
[2018-12-17 15:17] LABS: ABG BASE EXCESS 2.1 (-2.0-2.0); ABG HCO3 25.4 MEQ/L (22.0-26.0); ABG O2 SATURATION 95.5 % (95.0-99.0); ABG PARTIAL PRESSURE CO2 35.5 mmHg (35.0-45.0); ABG STANDARD HCO3 26.3 MEQ/L (22.0-26.0); ABG TOTAL CO2 26.5 MEQ/L (23.0-31.0); ABG pH (ARTERIAL) 7.472 UNITS (7.350-7.450)
--- NOTE | 2018-12-17 15:30 | REP ---
CHEST PORTABLE, SINGLE VIEW: There is no evidence of acute infiltrate. No pleural effusion is seen. The heart is normal in size. The mediastinal silhouette is unremarkable. The visualized osseous structures are intact. There is mild calcification and tortuosity of the thoracic aorta. IMPRESSION: No acute pulmonary disease. Electronically Signed by Teddy Natarajan MD 12/18/2018 07:50 A
[2018-12-17] MEDS ORDERED: ISOVUE-370 76% 100ML VIAL (Q9967) As Ordered ONE (17:35)
[2018-12-17] MEDS ORDERED: METOPROLOL 5 MG/5 ML VIAL IV STA (17:47)
[2018-12-17] MEDS ORDERED: DIGOXIN INJ 0.5 MG/2 ML AMP (J1160) IV STA (17:47)
[2018-12-17] MEDS ORDERED: PROCHLORPERAZINE 5 MG TAB (S0183) PO PRN (18:45)
[2018-12-17] MEDS ORDERED: MOM 30ML SUSPENSION UDC PO PRN (18:45)
[2018-12-17] MEDS ORDERED: BISACODYL 10 MG SUPP PR PRN (18:45)
--- NOTE | 2018-12-17 18:45 | REPVR ---
EXAM: CT Head Without Contrast EXAM DATE/TIME: 12/17/2018 6:24 PM CLINICAL HISTORY: 88 years old, female; Pain; Headache; Additional info: Fall with head trauma on anticoagulation dysphagia TECHNIQUE: Imaging protocol: Computed tomography images of the head without contrast. Radiation optimization: All CT scans at this facility use at least one of these dose optimization techniques: automated exposure control; mA and/or kV adjustment per patient size (includes targeted exams where dose is matched to clinical indication); or iterative reconstruction. COMPARISON: CT Head without contrast 11/19/2017 7:30 AM FINDINGS: Brain: There is moderate parenchymal volume loss. White matter changes are demonstrated in the subcortical, centrum semiovale and periventricular white matter consistent with small vessel white matter angiopathic gliosis. Ventricles: Normal. No ventriculomegaly. Bones/joints: Unremarkable. No acute fracture. Sinuses: Visualized sinuses are unremarkable. No fluid levels. Mastoid air cells: Visualized mastoid air cells are well aerated. No mastoid effusion. Soft tissues: Unremarkable. Vasculature: Atherosclerotic changes demonstrated in the right and left intracranial carotid arteries. IMPRESSION: There is moderate parenchymal volume loss. White matter changes are demonstrated in the subcortical, centrum semiovale and periventricular white matter consistent with small vessel white matter angiopathic gliosis. Electronically signed by: Edenilson Myers On 12/17/2018 18:45:26 PM
[2018-12-17] MEDS: METOPROLOL TART 25 MG TABLET PO SCH (18:50)
--- NOTE | 2018-12-17 18:51 | REPVR ---
EXAM: CT Neck With Contrast EXAM DATE/TIME: 12/17/2018 6:24 PM CLINICAL HISTORY: 88 years old, female; Neck pain; Additional info: Fall, hematoma right, on lovenox TECHNIQUE: Imaging protocol: Axial computed tomography images of the neck with intravenous contrast. Coronal and sagittal reformatted images were created and reviewed. Radiation optimization: All CT scans at this facility use at least one of these dose optimization techniques: automated exposure control; mA and/or kV adjustment per patient size (includes targeted exams where dose is matched to clinical indication); or iterative reconstruction. Contrast material: ISO 370;Contrast volume: 75 ml;Contrast route: IV; COMPARISON: CT Spine,cervical w/o contrast 11/19/2017 7:30 AM FINDINGS: Nasopharynx: Normal. Oropharynx: Normal. No significant tonsillar enlargement. Hypopharynx: Normal. Larynx: Normal. Normal epiglottis. Retropharyngeal space: Normal. Submandibular/Parotid glands: Normal. Glands are normal in size. Thyroid: Marked goiterous enlargement of the right lobe of the thyroid gland measures 6.1 x 8.5 x 8.2 cm. A large thyroid mass of other etiology not excluded however findings grossly stable in comparison to the prior study of 11/19/2017. Small left thyroid nodule. Trachea deviated to the left by the thyroid mass. Lymph nodes: Normal. No lymphadenopathy. Trachea: Visualized trachea is unremarkable. Lungs: Normal as visualized. Vasculature: The aorta demonstrates mild atherosclerotic calcification. Bones/joints: Degenerative spondylosis cervical spine. Soft tissues: Normal. No significant soft tissue swelling. IMPRESSION: Marked goiterous enlargement of the right lobe of the thyroid gland measures 6.1 x 8.5 x 8.2 cm. A large thyroid mass of other etiology not excluded however findings grossly stable in comparison to the prior study of 11/19/2017. Small left thyroid nodule. COMMENT: In patients aged 35 years and older with an incidental thyroid nodule equal to or greater than 1.[address], MRI or extrathyroidal US, further evaluation with dedicated thyroid US is recommended for patients with normal life expectancy and without comorbidities. For smaller nodules without suspicious features, no further evaluation or follow up is recommended. Electronically signed by: Edenilson Myers On 12/17/2018 18:51:22 PM
--- NOTE | 2018-12-17 19:04 | HPE ---
DATE OF ADMISSION: 12/17/2018 History is provided by the patient. Son was present at the bedside, who is also the healthcare proxy. CHIEF COMPLAINT: Feeling lousy and trouble swallowing. HISTORY OF PRESENT ILLNESS: This is an 88-year-old DO NOT RESUSCITATE, DO NOT INTUBATE female with past medical history significant for dementia. Had a fall 2 days ago at the long term while she had been on Lovenox for a history of deep vein thrombosis (DVT). Complained today was feeling lousy. According to the son, patient had developed trouble swallowing since Saturday. She fell at the [facility] while she was going to the bathroom unassisted using her walker and fell and hit the side of her neck. She complained of a lot of discomfort on the right but had no trouble breathing, no chest pressure, tightness, lightheadedness, or dizziness prior to the fall. She was found on routine vital signs checked today to have a fast rhythm with known history of paroxysmal atrial fibrillation and was subsequently brought into the emergency room for further evaluation. She otherwise denies any dysuria, urgency, frequency. Has a history of recurrent urinary tract infections with Escherichia (E) coli. Previously patient was found to have bilateral pulmonary embolism in the right and left main pulmonary arteries in September 2018 and on chronic Lovenox. She does have a history of a large right thyroid goiter that measured 6.8 cm with some mass effect on the trachea and vascular structures of the thoracic inlet. According to the son, who is present at the bedside, the patient has indicated that she could never consider a feeding tube should she have significant dysphagia or aspiration necessitating another means of nutrition. Patient otherwise denies any fever, chills, flank pain. Denies any dysuria, urgency, frequency. She is chronically demented and oftentimes has recent memory problems and difficulty remembering recent events but usually good with remembering her past. According to the son, no medications were given for patient's fall and neck pain 2 days ago. She was continued on Lovenox. In the emergency room she was found to have atrial fibrillation with rapid ventricular response of 119. Blood pressure was well maintained at 148 systolic. She was given metoprolol, digoxin, and is admitted for evaluation of dysphagia, rate control for atrial fibrillation with rapid ventricular response. PAST MEDICAL HISTORY: 1. Bilateral pulmonary embolism September 2018. 2. Diastolic congestive heart failure. 3. Hypertension. 4. Type 2 diabetes. 5. Breast cancer ([place]), on palliative treatment only. 6. Reflux disease. 7. Dementia. 8. Chronic constipation. LONG-TERM MEDICATIONS: Please see below. ALLERGIES: PENICILLIN, causing rash. PAST SURGICAL HISTORY: 1. Left total knee replacement. 2. Left bunion and hammertoe corrective surgery. 3. Glaucoma repair bilaterally. 4. Colonoscopy. 5. Pacemaker placement. SOCIAL HISTORY: Lives at [facility]). She is retired. Denies tobacco use, illicit drug use, or alcohol use. She has a history of tattoos. She is DO NOT RESUSCITATE, DO NOT INTUBATE. Patient's son is the healthcare proxy. She is adamant about no artificial feeding in the form of feeding tubes. FAMILY HISTORY: Noncontributory due to patient's advanced age of 88. REVIEW OF SYSTEMS: A 10-point systems review has been obtained and has been negative aside from positive findings on the history of present illness. PHYSICAL EXAMINATION: Temperature 96.6, pulse of 119, respiratory rate of 19, blood pressure is 148/80, 94% on room air. GENERAL: Patient is awake, alert, oriented only to her name. She is cooperative. Answers questions. Does not recall any recent events. She is following commands. Face is symmetric. She has ecchymotic areas on the right side of the face. Trachea is deviated. There are no carotid bruits. No stridor. Moist mucous membranes. Some thyromegaly noted. LUNGS: Diminished. Clear to auscultation. No wheezing or rales. HEART: S1, S2, irregularly irregular, tachycardic. ABDOMEN: Soft, nontender, nondistended. Positive bowel sounds. No costovertebral angle (CVA) tenderness, rebound, guarding. EXTREMITIES: No cyanosis or clubbing. LABORATORY DATA: White count 21.4, hemoglobin 15, hematocrit 46, platelet count 339. Sodium 135, potassium 3.5, chloride 99, bicarbonate 25, BUN 30, creatinine 0.6, glucose of 220, calcium 9.9. Total bilirubin 1.3, AST 18, ALT 35, alkaline phosphatase 88, total CK 29, MB fraction less than 1, MB relative index is 3.45, troponin less than 0.02, total protein 7.3, albumin of 2.9, lipase of 46. INR of 1.35. Arterial blood gas 7.4 pH, CO2 of 35, oxygen of 74, bicarbonate of 35, total CO2 of 26. Urinalysis: Cloudy appearance, 2+ protein, 3+ glucose 2+ ketones, 1+ blood. Negative nitrite. Leukocyte esterase 2+, 65 WBC, 2+ bacteria, 21 RBC. Chest x-ray on 12/17/2018: No acute cardiopulmonary disease. CT of the neck is still pending report. ASSESSMENT AND PLAN: This is an 88-year-old female who had a fall at [facility] 2 days ago who presents with dysphagia, both to solids and liquids, feeling lousy, found to have a normal urinalysis with a white count of 22,000, admitted for atrial fibrillation with rapid ventricular response as an inpatient for 2 midnights. IMPRESSION: 1. Atrial fibrillation with rapid ventricular response. Patient has been placed on metoprolol 25 mg every 6 hours. Received one dose of digoxin and continued on telemetry monitoring. She is DO NOT RESUSCITATE, DO NOT INTUBATE. Will check a digoxin level in the morning. Anticoagulated with chronic Lovenox, 80 mg subcutaneous every 12 hours. 2. Fall. Appears to be mechanical. She did not complain of any palpitations, lightheadedness, or dizziness prior to her fall. She did, however, sustain some hematoma in the neck; however, at this time she is breathing well and appears to be stable on room air. We will obtain ears, nose, and throat consultation to discuss airway issues should this become a problem into the middle of the night. Due to her history of bilateral pulmonary embolism diagnosed back in September 2018, we would need to continue her on her Lovenox injections. 3. History of extensive bilateral pulmonary emboli, most likely due to hypercoagulable state from malignancy. Patient is continued on Lovenox despite the fact that she has a hematoma, most likely in the neck. Will continue to monitor for any airway compromise. She is currently kept nothing by mouth due to significant risk of aspiration from her dysphagia. In the morning she will undergo swallow evaluation and upper gastrointestinal (GI) series. 4. Breast cancer. Patient elected for no further chemotherapy or aggressive treatment. She was on Letrozole for palliative treatment. 5. Type 2 diabetes. Hypoglycemic protocol while nothing by mouth and intravenous (IV) fluids to prevent significant hypoglycemia. Will resume insulin sliding scale for glucose greater than 180. 6. Large right thyroid goiter measuring 6.8 cm with mass effect on the trachea. Will defer to ENT and patient's family if they would like this further evaluated and looked at. Will check thyroid function testing. 7. History of diastolic congestive heart failure, currently nothing by mouth with intravenous (IV) fluids for dysphagia and risk of aspiration. Will monitor intake and output, daily weights, place on fluid restriction, and monitor respiratory status daily. She is currently saturating well on 2 liters nasal cannula. 8. Hypertension. She may be resumed back on her beta blockers, currently metoprolol 25 mg every 6 hours. 9. Reflux disease. Does not take any proton pump inhibitors. 10. Chronic dementia. Patient did make it known that she would not want to have a feeding tube. This was recorded on a document signed by the patient, as witnessed by the healthcare proxy, who is the son, who has verified that this was her personal choice. 11. Chronic constipation. Will hold off on a bowel regimen orally due to current dysphagia and risk of aspiration. If needed we will attempt to give her enemas. CODE STATUS: DO NOT RESUSCITATE.
[2018-12-17 20:00] VITALS: BP 146/79
[2018-12-17] MEDS ORDERED: CIPROFLOXACIN 200 MG in APPROPRIATE DILUENT 1 EA IV SCH (20:00)
[2018-12-17] MEDS ORDERED: metFORMIN (GLUCOPHAGE) 1000 MG TABLET PO SCH (21:00)
--- NOTE | 2018-12-17 21:45 | ECGEPIP ---
[facility] - ED Test Date: 2018-12-17 Pat Name: PRISCILLA CANO Department: Room: - Gender: Female Master Sheet Clerk: JESUS : [id number] Requested By: Butch Paige Order Number: [id number] Reading MD: Butch Christian Measurements Intervals [place] Rate: 115 P: 43 [place]: 156 QRS: -64 QRSD: 108 T: 53 QT: 314 QTc: 435 Interpretive Statements SINUS TACHYCARDIA LEFT ANTERIOR FASCICULAR BLOCK VOLTAGE CRITERIA FOR LVH POSSIBLE LATERAL MYOCARDIAL INFARCTION, OF INDETERMINATE AGE Electronically Signed on 12-17-2018 21:45:33 EDT by Butch Christian
[2018-12-17 22:00] VITALS: O2SAT 89
[2018-12-17] MEDS: LETROZOLE 2.5 MG TAB PO SCH (22:33)
[2018-12-17] MEDS: ENOXAPARIN 80 MG/0.8 ML SYRINGE (J1650) SC SCH (22:33)
[2018-12-17] MEDS: NS 1,000 ML IV SCH (22:34)
[2018-12-17] MEDS: CIPROFLOXACIN 200 MG in APPROPRIATE DILUENT 1 EA IV SCH (22:40)
[2018-12-17 23:00] VITALS: O2SAT 96
[2018-12-17 23:59] VITALS: BP 135/75
[2018-12-18] VITALS (12 sets, daily range): BP systolic 118–153; BP diastolic 58–87; O2SAT 94–95
[2018-12-18] MEDS: METOPROLOL TART 25 MG TABLET PO SCH ×3 (00:53→18:00)
[2018-12-18] MEDS ORDERED: LEVOTHYROXINE 12.5MCG PER 1/2 TAB (0.0125MG) PO SCH (06:00)
[2018-12-18 06:01] LABS: ALBUMIN 2.6 GM/DL (3.2-5.2); ALT/SGPT 32 U/L (12-78); BILIRUBIN,TOTAL 1.1 MG/DL (0.2-1.0); BLOOD UREA NITROGEN 32 MG/DL (7-18); CALCIUM LEVEL 9.1 MG/DL (8.8-10.2); CARBON DIOXIDE LEVEL 27 MEQ/L (21-32); CHLORIDE LEVEL 103 MEQ/L (98-107); CREATININE FOR GFR 0.48 MG/DL (0.55-1.30); GLOMERULAR FILTRATION RATE > 60.0 (>32); GLUCOSE, FASTING 162 MG/DL (70-100); MAGNESIUM LEVEL 2.2 MG/DL (1.8-2.4); POTASSIUM SERUM 3.3 MEQ/L (3.5-5.1); SODIUM LEVEL 139 MEQ/L (136-145); TOTAL PROTEIN 6.6 GM/DL (6.4-8.2)
[2018-12-18] MEDS ORDERED: POTASSIUM CHLORIDE 10 MEQ SR TABLET PO ONE (07:15)
[2018-12-18 07:45] LABS: BASO % 0.2 % (0.0-1.0); EOS # 0.1 10^3/uL (0.0-0.50); EOS % 0.4 % (0.0-3.0); HEMATOCRIT 40.8 % (36.0-47.0); HEMOGLOBIN 13.5 g/dl (12.0-15.5); LYMPH # 1.7 10^3/uL (1.5-4.5); LYMPH % 10.8 % (24.0-44.0); MEAN CORPUSCULAR HEMOGLOBIN 29.2 pg (27.0-33.0); MEAN CORPUSCULAR HGB CONC 33.1 g/dl (32.0-36.5); MEAN CORPUSCULAR VOLUME 88.1 fl (80.0-96.0); MONO # 1.5 10^3/uL (0.0-0.8); MONO % 9.4 % (0.0-5.0); NEUTROPHILS # 12.7 10^3/uL (1.8-7.7); NEUTROPHILS % 78.6 % (36.0-66.0); PLATELET COUNT, AUTOMATED 334 10^3/uL (150-450); RED BLOOD COUNT 4.63 10^6/uL (4.00-5.40); WHITE BLOOD COUNT 16.1 10^3/uL (4.0-10.0)
[2018-12-18] MEDS ORDERED: POTASSIUM CHLORIDE 10% LIQ 20 MEQ/15 ML UDC PO ONE (07:45)
[2018-12-18] MEDS ORDERED: LEVOTHYROXINE 100 MCG (0.1MG) VIAL IV SCH ×2 (09:00)
[2018-12-18] MEDS ORDERED: METOPROLOL TART 25 MG TABLET PO ONE (09:00)
[2018-12-18] MEDS: ENOXAPARIN 80 MG/0.8 ML SYRINGE (J1650) SC SCH ×2 (09:35→22:19)
[2018-12-18] MEDS: NS 1,000 ML IV SCH ×2 (09:40→22:19)
[2018-12-18] MEDS: CIPROFLOXACIN 200 MG in APPROPRIATE DILUENT 1 EA IV SCH ×2 (09:41→22:19)
[2018-12-18] MEDS ORDERED: METOPROLOL TART 25 MG TABLET PO SCH (12:00)
[2018-12-18] MEDS ORDERED: SCOPOLAMINE 1MG TRANSDERMAL PATCH TOP PRN (13:45)
[2018-12-18] MEDS ORDERED: MORPHINE 10MG/0.5ML ORAL CONCENTRATE SOLUTION U/D SL PRN (13:45)
[2018-12-18] MEDS ORDERED: ONDANSETRON 4MG/2ML VIAL (J2405) IV PRN (13:45)
[2018-12-18] MEDS ORDERED: ATROPINE SULFATE 1% OP SOLN 2 ML BTL SL PRN (13:45)
[2018-12-18] MEDS ORDERED: diltiaZEM 125 MG in NS 100 ML IV SCH (14:00)
--- NOTE | 2018-12-18 22:17 | IPN ---
DATE: 12/18/2018 Patient continued to have increased risk of aspiration due to significant dysphagia from known goiter. She complains of pain when she tries to swallow, but no thrush is noted. She also complains of dysphagia to solids and liquids and has failed a swallow evaluation. Heart rate overnight also was uncontrolled despite Lopressor and has been increased to 37.5 every 6 hours. She currently has difficulty swallowing the solids as well. When I interviewed her this morning and asked her whether she would consider a feeding tube placement, she said no, according to her prior wishes, which is confirmed by the two sons. She would like to continue with no feeding tube and DO NOT RESUSCITATE status. Patient had difficulty with her oral intake for the past few months and has had some weight loss at the correction. She has had decrease in appetite due to this. According to the family, patient would like to continue with oral diet despite risk of aspiration and does not wish to have any feeding tube placed despite risk of aspiration, pneumonia, pneumonitis, respiratory distress, and from this. The family is aware of patient's decompensating status and agrees to allow her to heat and to make her comfort measures once the rest of the family have arrived in [place]. The son at the bedside along with the son last night the emergency room both agree to follow the mother's wish of no feeding tube and to pursue comfort measures only. This was also confirmed with the patient's sister on the telephone. Family is trying to organize everyone to arrive in [place] by this weekend. They have requested refraining from Roxanol/Ativan until the family arrives and has a chance to meet with the patient. VITAL SIGNS: Temperature 98, pulse 101-158, irregularly irregular, respiratory rate 18, blood pressure 118/58, 94% on 2 liters nasal cannula. GENERAL: Patient is awake, alert, oriented to herself. Answers questions appropriately. Says that she does not have any chest pain, pressure. Shortness of breath slight and some palpitations without lightheadedness or dizziness. No jugular venous distention. Patient has significant thyromegaly with palpable goiter, deviated trachea, moderate respiratory distress with use of accessory muscles. Mouth is open with mouth breathing due to goiter. LUNGS: Diminished with occasional wheezing. HEART: S1, S2, irregularly irregular, tachycardic. ABDOMEN: Soft, nontender, nondistended. EXTREMITIES: No cyanosis or clubbing. Trace edema. White count 16.1, hemoglobin 13, hematocrit 40, platelet count 334. Sodium 139, potassium 3.3, chloride 103, bicarbonate 27, BUN 32, creatinine 0.48, glucose 162. Total bilirubin 1.1, AST 18, ALT 32, albumin of 2.6. Microbiology: Urine culture is pending. CT of the head 12/17/2018: Moderate parenchymal volume loss. White matter changes. Small-vessel ischemic disease. CT of the neck: Mild goiter with enlargement of the right lobe of the thyroid. Measures 6 x 8 x 8. A large thyroid mass of other etiology cannot be excluded, but findings are stable in comparison to November 2017, small left thyroid nodule. Chest x-ray 12/17/2018: No acute cardiopulmonary disease. ASSESSMENT AND PLAN: This is an 88-year-old female with history of bilateral pulmonary embolism, diastolic heart failure, hypertension, type 2 diabetes, breast cancer (CA), on palliative treatment, reflux, dementia, chronic obstipation, and right thyroid nodule and goiter from November 2017, admitted on 12/17/2018 due to atrial fibrillation with rapid ventricular response (RVR), urinary tract infection. Active issues are: 1. Atrial fibrillation with rapid ventricular response. Patient was on metoprolol 25 every 6 hours with uncontrolled weight. This has since been increased to 37.5 mg every 6 hours. The family has decided not to pursue feeding tube placement. She is DO NOT RESUSCITATE, DO NOT INTUBATE. She did receive one dose of digoxin and was on telemetry monitoring. They are waiting for the rest of the family to come to [place], at which point they will be comfortable with administering Roxanol, Ativan, and scopolamine patch for her comfort. She is currently DO NOT RESUSCITATE, DO NOT INTUBATE. We will continue the rate control medications, anticoagulation with Lovenox, but no further blood tests or telemetry. 2. Fall. Appears to be mechanical. Denied any palpitations prior to the fall, lightheadedness, or dizziness. She does have a hematoma noted on the right neck. CT of the neck shows no hematoma. Review of her CT with Dr. Hugo, ENT, showed no enlarging hematoma. Airway is intact. She is not a candidate for tracheostomy due to DO NOT INTUBATE wishes as well as a large thyroid mass/goiter. 3. History of extensive bilateral pulmonary embolism (PE) due to hypercoagulable state, most likely from malignancy. She is continued on Lovenox subcutaneous every 12 hours. 4. Dysphagia secondary to goiter. Currently has no airway compromise, according to ENT, Dr. Hugo who has reviewed a CT of neck on 12/17/2018. Patient is not a candidate for trach secondary to large mass and goiter, and she has prior wishes of DO NOT INTUBATE. She is currently kept on Lovenox. 5. History of breast cancer. No further chemotherapy, on Letrozole palliative treatment. 6. Type 2 diabetes, on hypoglycemic protocol. Per family, she would not want a feeding tube; therefore, she is permitted pureed diet. Patient and the family understand that should she continue to aspirate and cause chemical pneumonitis, pneumonia, empyema, lung abscess, sepsis, and , that she would be okay with that. At this time family has requested for Roxanol/Ativan to be withheld until the rest of the family can come in. They, however, understand that we will permit her to aspirate due to her prior wishes of no feeding tube placement. 7. Large thyroid goiter. Cannot exclude thyroid mass, measuring 6.8 cm with mass effect on the trachea. Patient does not want any intubation, does not want to have a trach placed. Family does not want any invasive procedure or biopsy. She is currently DO NOT RESUSCITATE, DO NOT INTUBATE, and comfort measures only. No further invasive evaluation or treatment. 8. History of diastolic congestive heart failure, previously on IV fluids due to nothing by mouth status for a swallow evaluation. She is currently comfort measures only with no restrictions for her diet due to her prior wishes. Despite risk of aspiration, patient will be kept on a pureed diet. She is currently on 2 liters nasal cannula. Does not appear to be decompensated heart failure. 9. Hypertension. She is currently on metoprolol at 37.5 mg every 6 hours. 10. Reflux disease. Does not take any proton pump inhibitor. 11. Chronic dementia. Patient has written documentation of DO NOT RESUSCITATE, DO NOT INTUBATE. This has subsequently been changed to comfort measures only, knowing that she will continue to aspiration, cause pneumonia, sepsis, empyema, lung abscess, respiratory distress, and eventually . Family is waiting for everyone to come into the hospital, and at that point they will allow her to be comfortable and be discharged back to the correction. CODE STATUS: DO NOT RESUSCITATE, DO NOT INTUBATE.
[2018-12-18] MEDS: LETROZOLE 2.5 MG TAB PO SCH (22:19)
[2018-12-19] MEDS: METOPROLOL TART 25 MG TABLET PO SCH ×4 (00:19→16:57)
[2018-12-19 06:25] VITALS: BP 128/84
[2018-12-19] MEDS: NS 1,000 ML IV SCH ×2 (06:27→16:57)
[2018-12-19] MEDS: CIPROFLOXACIN 200 MG in APPROPRIATE DILUENT 1 EA IV SCH ×2 (09:04→21:34)
[2018-12-19] MEDS: ENOXAPARIN 80 MG/0.8 ML SYRINGE (J1650) SC SCH ×2 (09:04→21:35)
[2018-12-19 13:50] VITALS: BP 137/80
[2018-12-19] MEDS: ACETAMINOPHEN TAB 650MG DOSE (2X325MG) PO PRN ×2 (15:02→21:34)
[2018-12-19 15:30] VITALS: BP 121/76
[2018-12-19 21:20] VITALS: BP 114/82
[2018-12-19] MEDS: LETROZOLE 2.5 MG TAB PO SCH (21:35)
[2018-12-20] VITALS: BP 118/70
[2018-12-20 05:51] VITALS: BP 154/84
[2018-12-20] MEDS: METOPROLOL TART 25 MG TABLET PO SCH ×2 (06:00)
[2018-12-20] MEDS: NS 1,000 ML IV SCH (06:05)
[2018-12-20] MEDS: CIPROFLOXACIN 200 MG in APPROPRIATE DILUENT 1 EA IV SCH (08:32)
[2018-12-20] MEDS: ENOXAPARIN 80 MG/0.8 ML SYRINGE (J1650) SC SCH (08:32)
[2018-12-20] MEDS ORDERED: DIGOXIN 0.125 MG TAB PO STA (08:58)
[2018-12-20] MEDS ORDERED: LEVALBUTEROL 1.25 MG/0.5 ML CONCENTRATE NEB INH PRN (09:00)
[2018-12-20] MEDS ORDERED: FUROSEMIDE 20 MG/2 ML VIAL (J1940) IV ONE (09:15)
[2018-12-20] MEDS ORDERED: LEVALBUTEROL 1.25 MG/0.5 ML CONCENTRATE NEB NEB ONE (09:15)
[2018-12-20] MEDS ORDERED: MORPHINE 10MG/0.5ML ORAL CONCENTRATE SOLUTION U/D SL ONE (10:00)
[2018-12-20] MEDS ORDERED: MORPHINE 10MG/0.5ML ORAL CONCENTRATE SOLUTION U/D SL PRN (10:30)
[2018-12-20] MEDS ORDERED: ONDANSETRON 4MG/2ML VIAL (J2405) IV PRN (10:45)
[2018-12-20] MEDS ORDERED: ONDANSETRON 4MG/2ML VIAL (J2405) As Ordered ONE (10:46)
[2018-12-20] MEDS ORDERED: MORPHINE 10MG/0.5ML ORAL CONCENTRATE SOLUTION U/D As Ordered ONE (10:48)
[2018-12-20] MEDS ORDERED: MORPHINE SULF IN 0.9% NACL 100 MG in APPROPRIATE DILUENT 1 EA IV SCH ×6 (11:00→13:15)
[2018-12-20] MEDS ORDERED: EPIDURAL/PCA KEYS XX PRN (11:15)
--- NOTE | 2018-12-20 11:26 | IPN ---
DATE OF SERVICE: 12/16/2018 Patient is seen and examined at the bedside. Chart has been reviewed. This morning patient is sitting at the bedside drinking her liquids. She denies any shortness of breath, chest pain, pressure or tightness. States that she continues to have dysphagia with solids and prefers to eat liquid and soft diet. No fever or chills overnight. Decision was made to make her COMFORT MEASURES ONLY in light of recurrent aspiration risk for pneumonitis, pneumonia, respiratory distress, hypoxia, and eventually respiratory failure. The family was willing to respect patient's advanced wished of no feeding tubes and to be allowed to eat her food normally through the mouth. Patient has been made COMFORT MEASURES ONLY. Her metoprolol has been kept for comfort, for heart rate control and her Lovenox has been kept as well for comfort due to history of pulmonary embolisms (PEs) and deep venous thromboses (DVTs). The family is currently alerting all relatives to come to [place] this weekend in order to make decision for withdrawal of care and stopping the metoprolol and Lopressor and allowing the patient to have pain medications if needed when everyone has had a chance to come to [place]. Patient's daughter will be arriving this evening at around 5 o'clock. Grandchildren will be arriving this weekend. Decision for withdrawal of care and administration of hospice medications will probably be done on Saturday. The son at the bedside has indicated that a riveter hand will be coming in tomorrow on Saturday with the rest of the family to give her, her last rights, and most likely will be withdrawal of current medications on Saturday. They are willing to allow the patient to without suffering by administering hospice medications such as Roxanol and Ativan as needed if the patient request. At this time, we have agreed that the patient will remain in the hospital as we are titrating her medications for rate control, for comfort. We did agree that there will be no more diagnostic testing or further evaluation as she is comfort measures. There will be no escalation of treatment in terms of intubation, bilevel positive airway pressure (BiPAP) therapy due to prior wishes of DO NOT INTUBATE should the patient continue to aspirate and suffer from worsening respiratory failure. The son is tearful at the bedside and says "which I don't want to make the wrong call." However after further discussion, we had discussed that the patient truly has progressed along to the point where there are no viable medical alternatives that would not go against her wishes and that at this time it truly is a matter of respecting her advanced directives of no feeding tube and permitting her to live the rest of her days using her definition of quality of life even if this means aspiration and respiratory failure. VITAL SIGNS: Temperature 97, pulse 111, respiratory rate 16, blood pressure 121/76, 96% on 2 liters nasal cannula. GENERAL: Patient is very hard of hearing. She is awake, alert, oriented to her name. She follows commands. She has purposeful movements. HEENT: Face is symmetric. No jugular venous distention. Positive thyromegaly with palpable goiter, deviated trachea. She does exhibit some conversational dyspnea about 4-5 words. No use of respiratory accessory muscles. Mouth is open and mouth breathing due to goiter when she naps. Ecchymosis noted on the right anterior neck. No subcutaneous emphysema is noted. LUNGS: Sounds are diminished with occasional wheezing. There is no stridor on the neck examination to suggest interior airway obstruction. HEART: S1, S2, sinus tachycardia. ABDOMEN: Is soft, nontender, and nondistended. EXTREMITIES: No cyanosis or clubbing. There is trace edema. Laboratory data, imaging studies, microbiology have all been reviewed. ASSESSMENT AND PLAN: This is an 88-year-old female with history of bilateral pulmonary embolism on chronic Lovenox, diastolic heart failure, hypertension, diabetes, breast cancer (CA) on palliative treatment, reflux, dementia, right-sided nodule and goiter noted in November 2017, admitted on 12/17/2018 for atrial fibrillation (AFib) with rapid ventricular response (RVR) and urinary tract infection. Acute issues are: 1. AFib with RVR. Patient is kept on metoprolol 25 for weight control and for comfort. She is DO NOT RESUSCITATE, DO NOT INTUBATE despite dysphagia and patient is still able to take her medications by being mixed with applesauce. 2. Recurrent aspiration due to tracheal deviation from goiter and possible thyroid malignancy. At this time, family is requesting the patient's advanced directives of DO NOT INTUBATE. She is not a candidate for tracheostomy and patient would not want a feeding tube. She is currently allowed to aspirate due to her prior wishes and has been made COMFORT MEASURES ONLY. The family understands that there will be pneumonitis, possibly pneumonia, abscess, parapneumonic effusions, respiratory failure finally resulting in as a consequence of permitting her to aspirate. Patient has made it known that her definition of quality of life would be to continue with eating through the mouth and not to consider any artificial nutrition either through the feeding tube or intravenously. Due to this, the family has been made aware that she is currently at risk for respiratory distress. They are in agreement to not move forward with any further management with artifical nutrition. Therefore, she has been made COMFORT MEASURES ONLY. 3. History of extensive bilateral pulmonary embolism due to hypercoagulable state, most likely from malignancy with thyroid nodule appearing most likely malignant along with a goiter. She is on Lovenox subcu every 12 hours. The family has requested that for her comfort this Lovenox be continued until they decided on withdrawal of care and allowing the natural process to continue. 4. History of breast cancer. On palliative treatment. 5. Type 2 diabetes. On hypoglycemic protocol. Per patient's advanced wishes, patient does not want any artificial nutrition either by a feeding tube or continuous gastrostomy tube or parenteral nurtrion. Patient and family understand in that she will continue to aspirate, which may lead to chemical pneumonitis, pneumonia, parapneumonic effusion, lung abscess, empyema, respiratory failure, sepsis, and eventually and that the patient would be at peace with that. She has made it known through her advanced directives that she would prefer to on her own terms with aspiration rather than to be kept alive artificially with feeding tube nutrition. 6. Large thyroid goiter. Cannot exclude thyroid mass and thyroid malignancy with mass effect on the trachea measuring 6.8 cm. Patient is DO NOT RESUSCITATE, DO NOT INTUBATE, not a candidate for tracheostomy. The family do not want any invasive procedure or biopsy, and she is currently COMFORT MEASURES ONLY with aspiration risk. 7. History of diastolic heart failure, previously on IV fluids due to nothing by mouth status for swallow evaluation. She had failed the swallow evaluation due to deviated trachea and aspiration risk. She is currently on COMFORT MEASURES ONLY with no restrictions on her diet due to her prior wishes of no feeding tube. At this time, she is permitted to be on pureed and liquid diet for her comfort. 8. Disposition: The son at bedside is worried about being transferred to the custodial and that there is only one licensed practical nurse (TAKER OUT) for 20 patients and feared that mother will not be receiving care as she has been here at [facility]. I have discussed with him that her prognosis is poor and that [id number] pain medications when the time comes and after family have decided to withdraw full care would be to her benefit and that she does not need any extensive nursing care. 9. Hypertension. Currently on metoprolol. 10. Reflux disease. Does not take proton pump inhibitor (PPI). 11. Chronic dementia. She is DO NOT RESUSCITATE, DO NOT INTUBATE, advanced directives of no feeding tube and may be transferred back to the custodial on Saturday after the family decides on withdrawing care on Saturday. PRISCILA
[2018-12-20] MEDS ORDERED: LEVALBUTEROL 1.25 MG/0.5 ML CONCENTRATE NEB INH SCH (12:00)
[2018-12-20] MEDS ORDERED: LORazepam 2 MG/ML VIAL (J2060) IV STA (13:01)
[2018-12-20] MEDS ORDERED: ATROPINE SULFATE 1% OP SOLN 2 ML BTL SL PRN (13:15)
[2018-12-20] MEDS ORDERED: LORazepam 2 MG/ML VIAL (J2060) IV PRN (13:15)
[2018-12-20] MEDS ORDERED: SCOPOLAMINE 1MG TRANSDERMAL PATCH TOP SCH (14:00)
--- NOTE | 2018-12-21 09:09 | IPN ---
DATE: 12/20/2018 Patient is seen and examined at the bedside. Chart has been reviewed. This morning the patient is awake, requiring assistance with feeding. She currently denies any shortness of breath, complains of palpitations without dizziness or lightheadedness, fever, chills or cough. Temperature 97.8, pulse 98, respiratory rate 18, blood pressure 154/84, 94% on room air. Generally, patient is awake, alert, oriented to person, very hard of hearing, disoriented to place and date. She is able to answer questions appropriately. No use of respiratory accessory muscles. Lungs are diminished with fine crepitations and crackles at the bases. Heart S1, S2 irregularly irregular, tachycardic. Abdomen soft, nontender, nondistended. Extremities trace edema. Laboratory data and imaging studies have been reviewed. ASSESSMENT/PLAN: This is an 88-year-old female with a history of bilateral pulmonary embolism (PE), diastolic heart failure, hypertension, diabetes, breast CA on palliative treatment, reflux, dementia, chronic constipation, right thyroid nodule and goiter from November 2017, admitted on 12/17/2018 for atrial fibrillation with rapid ventricular response (RVR) and urinary tract infection. The patient also complained of dysphagia and found to be an aspiration risk. According to her prior wishes, the patient would not want a feeding tube. Active issues are: 1. Atrial fibrillation with RVR. Patient is on metoprolol every 6 hours. According to the patient's wishes of no feeding tube, she is allowed to aspirate and take oral medications. The family is waiting for the rest of the relatives to come which will occur on Saturday and to administer medications for comfort on Saturday to Saturday. 2. Urinary tract infection. Continued on antibiotics. 3. Fall. Appears to be mechanical. Denied palpitations prior to her fall, lightheadedness or dizziness. 4. Hematoma in the right neck was evaluated with CT of the neck which shows no enlarging hematoma and airway is intact, per Dr. Hugo of ENT who reviewed this with me. The patient is not a candidate for tracheostomy due to do not intubate wishes as well as large thyroid mass/goiter. 5. Thyroid mass. Cannot rule out malignancy/goiter. Patient has tracheal deviation, complains of dysphagia. No feeding tube per her advanced wishes. She is currently comfort measures, allowed to take medications for comfort, such as her metoprolol for atrial fibrillation and her Lovenox for pulmonary embolism (PE). Family is to decide on when to administer hospice medications. Awaiting the rest of the relatives to arrive on Saturday. 6. History of extensive bilateral PE due to hypercoagulable state, most likely from malignancy. She has a large thyroid mass, most likely malignant. She is continued on Lovenox subcu for comfort until the family decides on timing of hospice medications. 7. Dysphagia secondary to thyroid mass/goiter. No a candidate for tracheostomy per ENT, Dr. Hugo, prior wish of do not intubate. Therefore we are allowing for permissive aspiration. 8. History of breast cancer on palliative treatment. 9. History of diastolic failure status post IV fluids due to nothing by mouth status. 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 10. Chronic dementia. She has written documentation for DO NOT RESUSCITATE, DO NOT INTUBATE and no feeding tube. DISPOSITION: Patient is comfort measures only (PROJECT ENGINEERING MANAGER), DO NOT RESUSCITATE, DO NOT INTUBATE. No feeding tube. She will be allowed to aspirate, which can cause pneumonia, sepsis, empyema, parapneumonic effusion, lung abscess, respiratory distress and eventually . Family is waiting for other relatives to arrive in the hospital on Saturday. They have a clergyman coming on Saturday for the patient's last rights and decision for administration of hospice medications will be made on Saturday. CODE STATUS: DO NOT INTUBATE, DO NOT RESUSCITATE, comfort measures only (PROJECT ENGINEERING MANAGER). PRISCILA
--- NOTE | 2018-12-22 20:55 | DSES ---
DATE OF ADMISSION: 12/17/2018 DATE OF /DISCHARGE: 12/20/2018 Date of and of comfort measures only, DO NOT RESUSCITATE, DO NOT INTUBATE per family request and patient's advanced directives was 12/20/2018. Patient at 7:58 p.m. PRIMARY DISCHARGE DIAGNOSES: 1. Atrial fibrillation with rapid ventricular response. 2. Urinary tract infection. 3. Dysphagia to solids and liquids. 4. Thyroid mass, could not rule out malignancy. 5. History of diastolic heart failure. 6. History of breast cancer on palliative treatment. 7. Systemic inflammatory response. 8. Hyponatremia. 9. Low potassium, hypokalemia. 10. Aspiration secondary to significant dysphagia from deviated trachea. 11. Large goiter. 12. Mechanical fall. 13. Extensive bilateral pulmonary embolus (PE) due to hypercoagulable state. 14. Chronic dementia. HOSPITAL COURSE: This is an 88-year-old female with history of bilateral PE on chronic Lovenox subcutaneously twice a day, diastolic heart failure, hypertension, diabetes, breast cancer on palliative treatment, reflux, dementia, chronic constipation, thyroid nodule, presented to the emergency room with complaints of dysphagia to solids and liquids, dysuria, urgency, urinary frequency, and a fall at home. Patient said that she was feeling lousy at home and was found to have atrial fibrillation with rapid ventricular response (RVR) and possible urinary tract infection (UTI) with history of recurrent UTI's with Escherichia (E) coli and admitted for rate control. Patient received metoprolol 25 mg every 6 hours, digoxin, and placed on telemetry monitoring. She was kept on Lovenox subcutaneous every 12 hours for history of bilateral PE. Due to mechanical fall at home, CT of the head performed showed no intracranial hemorrhage. CT of the neck showed large thyroid mass with tracheal deviation which was reviewed with ear, nose, and throat (ENT) on admission who felt that the patient was not a tracheostomy candidate and airway was patent and did not require intervention. Recommendations were to continue on pulse oximetry continuously. Patient's rate improved but did require additional doses of digoxin due to low blood pressure. For her complaints of dysphagia, she was kept nothing by mouth and kept on IV fluids. Swallow evaluation showed high risk of aspiration. Since the patient did not want any feeding tube, family decided to follow her advanced directives of allowing her to eat through the mouth despite risk of aspiration, pneumonitis, pneumonia, parapneumonic effusions, abscess, empyema, respiratory failure, and eventually . The patient was agreeable to continuing eating through the mouth despite the risk of . She had difficulty swallowing her medications and often refused. Family was understanding of the patient's advanced wishes, confirmed at the bedside that the patient just wants to eat what she can and understands the consequences that she will if her medications are not administered. Family was understanding of the patient's advanced condition and the patient did not wish to have biopsy of the neck as she will not undergo chemotherapy under any circumstance or undergo surgical intervention. Patient was made comfort measures only. Family requested all hospice medications to not be administered until everyone arrived in [place]. On Saturday morning, patient had significant respiratory distress and was found to have atrial fibrillation with RVR, rate of 140-160. Family was called in per the patient's request and patient with the family at the bedside. Due to elevated white count on admission, urine culture obtained showed Aerococcus. She was on antibiotics. Chest x-ray on admission showed no acute infiltrate. TIME SPENT ON DISCHARGE: 32 minutes MTDD
== END 2018-12-20 19:58 | disposition expired | DRG 308 ==
LOC: M ED 14:04 → EDBD 14:04 → M ED INP 17:12 → M PCU 20:45 → M MS5PR 12-19 15:20
PROVIDERS: ADMIT General Practice; ATTEND General Practice
DX: I48.0 Paroxysmal atrial fibrillation (principal); I26.99 Other pulmonary embolism without acute cor pulmonale; N39.0 Urinary tract infection, site not specified; I50.32 Chronic diastolic (congestive) heart failure; D68.59 Other primary thrombophilia; C79.89 Secondary malignant neoplasm of other specified sites; E87.1 Hypo-osmolality and hyponatremia; R13.10 Dysphagia, unspecified; S10.93XA Contusion of unspecified part of neck, initial encounter; I12.9 Hypertensive chronic kidney disease with stage 1 through stage 4 chronic kidney disease, or unspecified chronic kidney disease; C50.919 Malignant neoplasm of unspecified site of unspecified female breast; E87.6 Hypokalemia; E83.42 Hypomagnesemia; F03.90 Unspecified dementia, unspecified severity, without behavioral disturbance, psychotic disturbance, mood disturbance, and anxiety; E04.1 Nontoxic single thyroid nodule; B96.29 Other Escherichia coli [E. coli] as the cause of diseases classified elsewhere; Z66 Do not resuscitate; Z95.0 Presence of cardiac pacemaker; K21.9 Gastro-esophageal reflux disease without esophagitis; Z96.652 Presence of left artificial knee joint; E11.9 Type 2 diabetes mellitus without complications; K59.00 Constipation, unspecified; Z51.5 Encounter for palliative care; W18.30XA Fall on same level, unspecified, initial encounter; Y92.009 Unspecified place in unspecified non-institutional (private) residence as the place of occurrence of the external cause

== ENCOUNTER → 2018-12-17 | Outpatient (REF) ==
[~2018-12-17] MED LIST changes: +BISA10SU4 PR; +ENEMENE PR; +GLUC0.8I INJ; +PROC5TA PO
[2018-12-17 08:23] LABS: HEMOGLOBIN 14.9 g/dl (12.0-15.5); MEAN CORPUSCULAR HEMOGLOBIN 29.5 pg (27.0-33.0); MEAN CORPUSCULAR HGB CONC 33.1 g/dl (32.0-36.5); MEAN CORPUSCULAR VOLUME 89.1 fl (80.0-96.0); PLATELET COUNT, AUTOMATED 338 10^3/uL (150-450); RED BLOOD COUNT 5.05 10^6/uL (4.00-5.40); WHITE BLOOD COUNT 21.5 10^3/uL (4.0-10.0)
[2018-12-17 08:51] LABS: BLOOD UREA NITROGEN 28 MG/DL (7-18); CALCIUM LEVEL 9.9 MG/DL (8.8-10.2); CARBON DIOXIDE LEVEL 21 MEQ/L (21-32); CHLORIDE LEVEL 97 MEQ/L (98-107); GLOMERULAR FILTRATION RATE > 60.0 (>32); GLUCOSE, FASTING 216 MG/DL (70-100); POTASSIUM SERUM 3.7 MEQ/L (3.5-5.1); SODIUM LEVEL 136 MEQ/L (136-145)
== END ==
PROVIDERS: ATTEND Family Medicine
DX: E11.9 Type 2 diabetes mellitus without complications (principal); Z79.899 Other long term (current) drug therapy